=== PATIENT | female | born 1990 | race African-American/Black ===

== ENCOUNTER 2024-06-23 03:04 | Emergency (ER) | payer SELFPAY ==
[2024-06-23] VITALS (16 sets, daily range): BP systolic 115–138; BP diastolic 74–94; PULSE 55–93; RESP 10–20; TEMP 36.8; O2SAT 98–100
--- NOTE | ~2024-06-23 | CT_ITS ---
Noncontrast CT scan of the cervical spine Technique: Multiple contiguous axial [address] images of the cervical spine were obtained and rec onstructed in 2D sagittal and coronal planes on the acquisition scanner. Dose reduction technique was used on this scan by utilizing automated exposure control, adjustment of the mA and/or kV according to patient size. The dose-length product (DLP) was 470.08 mGy-cm. Clinical History: Pain, status post fall Findings: No fractures or dislocations. There is straightening of the normal cervical lordosis, othe rwise osseous structures are unremarkable. The intervertebral disc spaces are preserved. No preverte bral soft tissue swelling. There is mild patchy groundglass opacity in the lung apices Impression: No fracture or subluxation of the cervical spine. Mild patchy ground glass opacities in the lung apices. Correlate for atypical infection or mild fluid overload/pulmonary edema. Reviewed, dictated and finalized at [facility]. STRIAL DESIGNER Impression: No fracture or subluxation of the cervical spine. Mild patchy ground glass opacities in the lung apices. Correlate for atypical i nfection or mild fluid overload/pulmonary edema.
--- NOTE | ~2024-06-23 | CT_ITS ---
Non-contrast Head CT History: Seizure Technique: Axial non-contrast imaging of the brain was performed. Dose reduction technique was used on this scan by utilizing automated exposure control and iterative reconstruction technique. The dose -length product (DLP) was 756.67 mGy-cm. Findings: There is no evidence of intracranial hemorrhage, mass lesion, or acute infarct. Brain par enchyma appears normal. The ventricles and subarachnoid spaces are normal in size. The calvarium ap pears normal. The visualized paranasal sinuses and mastoid air cells are clear. There is left perior bital soft tissue swelling and subcutaneous emphysema. Impression: No intracranial abnormality seen. Left periorbital soft tissue swelling and subcutaneous emphysema, likely posttraumatic in nature. Reviewed, dictated and finalized at [facility]. ING SPECIALIST Impression: No intracranial abnormality seen. Left periorbital soft tissue swelling and subcutaneous emphysema, likely posttr aumatic in nature.
--- NOTE | 2024-06-23 03:17 | ECG_ITS ---
Test Date: 2024-06-23 03:21:37 Measurements Intervals [place] Rate: 60 P: 41 AK: 173 QRS: 6 QRSD: 105 T: -33 QT: 376 QTc: 378 Interpretive Statements SINUS RHYTHM MINIMAL Q WAVES- HIGH LATERAL LEADS ST DEVIATION AND MODERATE T-WAVE ABNORMALITY, CONSIDER ANT/INF ISCHEMIA ABNORMAL ECG No previous ECG available for comparison Electronically Signed On 06-23-2024 07:03:33 [employer] by Arsh Spivey D.O.
[2024-06-23] MEDS: SODIUM CHLORIDE 0.9% IV 1,000 ML 999 ML IV CONT (04:18)
[2024-06-23 05:06] LABS: Influenza A QL RT-PCR Negative (Negative); Influenza B QL RT-PCR Negative (Negative); RSV RNA, RT-PCR Negative (Negative); SARS-CoV-2 RNA PCR Negative (Negative)
[2024-06-23 05:27] LABS: Basophils Percent Auto 0.5 % (0.2-1.2); Eosinophils Absolute Auto 0.3 K/mm3 (0-0.3); Eosinophils Percent Auto 3.9 % (0-4.4); Hematocrit 36.9 % (37.0-47.0); Immature Granulocyte Absolute 0.02 K/mm3 (0.00-0.031); Immature Granulocyte Percent A 0.3 % (0-0.5); Lymphocytes Absolute Auto 1.86 K/mm3 (0.9-3.2); Lymphocytes Percent Auto 25.3 % (18.3-44.2); Mean Corpuscular HGB Conc 32.5 g/dl (32-36); Mean Corpuscular Hemoglobin 29.6 pg (26-34); Mean Corpuscular Volume 90.9 fl (80-100); Mean Platelet Volume 9.7 fl (7.4-10.4); Monocytes Absolute Auto 0.5 K/mm3 (0.1-0.6); Monocytes Percent Auto 6.3 % (2.6-8.5); Neutrophils Absolute Auto 4.7 K/mm3 (1.3-6.7); Neutrophils Percent Auto 63.7 % (45.5-73.1); Platelet Count Result 281 k/mm3 (150-375); Red Blood Count 4.06 M/mm3 (4.2-5.4); White Blood Count 7.4 K/mm3 (4.5-10.0)
[2024-06-23 05:41] LABS: Alanine Aminotransferase 11 U/L (6-35); Albumin Level 3.4 g/dL (3.5-5.1); Alkaline Phosphatase 70 U/L (38-126); Anion Gap 4 mmol/L (4-12); Aspartate Amino Transferase 19 U/L (14-36); Bilirubin,Total 0.3 mg/dL (0.2-1.3); Blood Urea Nitrogen 14 mg/dL (7-17); Calcium 8.1 mg/dL (8.4-10.2); Carbon Dioxide 28 mmol/L (22-30); Chloride 106 mmol/L (98-107); Estimated CRCL calculation 92 ml/min; Estimated Glomerular Filt Rate > 60; Glucose 82 mg/dL (65-110); Potassium 3.6 mmol/L (3.4-5.0); Sodium 138 mmol/L (137-145)
--- OUTSIDE RECORDS SUMMARY | 2024-06-23 06:02 | XMS_ITS | Continuity of Care Document ---
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 [facility] Respiratory Rate 16 breaths/min 05/28/2024 16:21:00 [facility] SBP NIBP 131 mm[Hg] 05/28/2024 16:21:00 [facility] DBP NIBP 90 mm[Hg] 05/28/2024 16:21:00 [facility] Weight (kg) 75.2 kg 05/28/2024 16:21:00 [facility] BMI 32.5 kg/m2 05/28/2024 16:21:00 [facility] SpO2 97 % 05/15/2024 04:54:44 [facility] Heart Rate 79 bpm 05/15/2024 04:54:43 [facility] Respiratory Rate 13 breaths/min 05/15/2024 04:54:26 [facility] SBP NIBP 103 mm[Hg] 05/15/2024 04:30:00 [facility] DBP NIBP 65 mm[Hg] 05/15/2024 04:30:00 [facility] Mean NIBP 84 mm[Hg] 05/15/2024 04:30:00 [facility] SpO2 94 % 05/15/2024 03:53:04 [facility] Heart Rate 61 bpm 05/15/2024 03:53:01 [facility] Respiratory Rate 14 breaths/min 05/15/2024 03:52:26 [facility] SBP NIBP 107 mm[Hg] 05/15/2024 03:30:00 [facility] DBP NIBP 70 mm[Hg] 05/15/2024 03:30:00 [facility] Mean NIBP 78 mm[Hg] 05/15/2024 03:30:00 [facility] Respiratory Rate 14 breaths/min 05/15/2024 03:29:56 [facility] Heart Rate 57 bpm 05/15/2024 03:29:56 [facility] SpO2 95 % 05/15/2024 03:29:29 [facility] SBP NIBP 111 mm[Hg] 05/15/2024 03:00:00 [facility] DBP NIBP 70 mm[Hg] 05/15/2024 03:00:00 [facility] Mean NIBP 83 mm[Hg] 05/15/2024 03:00:00 [facility] SpO2 95 % 05/15/2024 02:59:55 [facility] Heart Rate 57 bpm 05/15/2024 02:59:55 [facility] Respiratory Rate 14 breaths/min 05/15/2024 02:59:46 [facility] SBP NIBP 94 mm[Hg] 05/15/2024 02:30:00 [facility] DBP NIBP 55 mm[Hg] 05/15/2024 02:30:00 [facility] Mean NIBP 79 mm[Hg] 05/15/2024 02:30:00 [facility] Weight (kg) 75.5 kg 05/14/2024 23:47:00 [facility] Temperature (Celsius) 36.4 Ashley 05/14/2024 23:47:00 [facility] Heart Rate 70 bpm 03/31/2024 00:36:04 [facility] SpO2 94 % 03/31/2024 00:36:02 [facility] Respiratory Rate 12 breaths/min 03/31/2024 00:21:47 [facility] SpO2 97 % 03/31/2024 00:21:32 [facility] Heart Rate 71 bpm 03/31/2024 00:20:57 [facility] Mean NIBP 101 mm[Hg] 03/31/2024 00:00:00 [facility] SBP NIBP 119 mm[Hg] 03/31/2024 00:00:00 [facility] DBP NIBP 78 mm[Hg] 03/31/2024 00:00:00 [facility] SpO2 96 % 03/30/2024 23:53:57 [facility] Heart Rate 58 bpm 03/30/2024 23:53:57 [facility] Respiratory Rate 14 breaths/min 03/30/2024 23:53:46 [facility] SpO2 93 % 03/30/2024 23:21:53 [facility] Heart Rate 53 bpm 03/30/2024 23:21:49 [facility] Respiratory Rate 16 breaths/min 03/30/2024 23:21:43 [facility] Mean NIBP 86 mm[Hg] 03/30/2024 23:19:56 [facility] SBP NIBP 132 mm[Hg] 03/30/2024 23:19:56 [facility] DBP NIBP 71 mm[Hg] 03/30/2024 23:19:56 [facility] Respiratory Rate 15 breaths/min 03/30/2024 22:24:43 [facility] Mean NIBP 86 mm[Hg] 03/30/2024 22:00:00 [facility] SBP NIBP 112 mm[Hg] 03/30/2024 22:00:00 [facility] DBP NIBP 78 mm[Hg] 03/30/2024 22:00:00 [facility] SBP NIBP 106 mm[Hg] 03/30/2024 21:30:00 [facility] DBP NIBP 71 mm[Hg] 03/30/2024 21:30:00 [facility] Mean NIBP 88 mm[Hg] 03/30/2024 21:30:00 [facility] Weight (kg) 73.8 kg 03/30/2024 20:16:00 [facility] Temperature (Celsius) 36.0 Ashley 03/30/2024 20:16:00 [facility] Mean NIBP 104 mm[Hg] 03/24/2024 15:00:00 [facility] SpO2 99 % 03/24/2024 15:00:00 [facility] Heart Rate 76 bpm 03/24/2024 15:00:00 [facility] SBP NIBP 126 mm[Hg] 03/24/2024 15:00:00 [facility] DBP NIBP 86 mm[Hg] 03/24/2024 15:00:00 [facility] Heart Rate 76 bpm 03/24/2024 14:58:00 [facility] Respiratory Rate 16 breaths/min 03/24/2024 14:58:00 [facility] SpO2 100 % 03/24/2024 14:58:00 [facility] SBP NIBP 120 mm[Hg] 03/24/2024 14:51:46 [facility] DBP NIBP 93 mm[Hg] 03/24/2024 14:51:46 [facility] Mean NIBP 106 mm[Hg] 03/24/2024 14:51:46 [facility] Heart Rate 75 bpm 03/24/2024 14:14:51 [facility] Respiratory Rate 18 breaths/min 03/24/2024 14:14:45 [facility] SpO2 100 % 03/24/2024 14:11:19 [facility] Mean NIBP 87 mm[Hg] 03/24/2024 14:00:00 [facility] SBP NIBP 110 mm[Hg] 03/24/2024 14:00:00 [facility] DBP NIBP 75 mm[Hg] 03/24/2024 14:00:00 [facility] Respiratory Rate 19 breaths/min 03/24/2024 13:59:49 [facility] Heart Rate 64 bpm 03/24/2024 13:59:49 [facility] SpO2 100 % 03/24/2024 13:59:48 [facility] Mean NIBP 87 mm[Hg] 03/24/2024 13:30:00 [facility] SBP NIBP 113 mm[Hg] 03/24/2024 13:30:00 [facility] DBP NIBP 67 mm[Hg] 03/24/2024 13:30:00 [facility] Respiratory Rate 18 breaths/min 03/24/2024 12:18:31 [facility] Temperature (Celsius) 36.9 Ashley 03/24/2024 03:39:00 [facility] Weight (kg) 48.6 kg 03/24/2024 03:39:00 [facility] Weight (kg) 63.7 kg 08/03/2023 16:58:00 [facility] SBP NIBP 126 mm[Hg] 08/03/2023 16:58:00 [facility] DBP NIBP 101 mm[Hg] 08/03/2023 16:58:00 [facility] Heart Rate 112 bpm 08/03/2023 16:58:00 [facility] Respiratory Rate 18 breaths/min 08/03/2023 16:58:00 [facility] SpO2 99 % 08/03/2023 16:58:00 [facility] Temperature (Celsius) 36.7 Ashley 08/03/2023 16:58:00 [facility] Encounters Location Location Details Encounter Type Encounter Number Reason For Visit Attending Provider ADM Date DC Date Status Source [facility] Non-Admit [id number] Letty Peraltas 07/08 14:16 :02 07/09 05:59 :59 [facility] Emergency [id number] Darnell Fariasjermain 08/02 16:57 :09 08/02 17:56 :00 [facility] Transport [id number] Ilir Cedillo 03/24 03:24 :00 03/24 03:34 :00 [facility] Emergency [id number] Emily Tyler 03/24 03:37 :50 03/24 16:46 :00 [facility] [id number] Ilir Cedillo 03/30 19:54 :00 03/30 20:13 :00 [facility] Emergency [id number] Antonio Zamora 03/30 20:14 :43 03/31 02:05 :00 [facility] Emergency [id number] Johnny Sawyer 05/14 23:45 :59 05/15 05:00 :00 [facility] [id number] [facility]/28 16:18 :23 05/29 05:59 :59 [facility] Between Visit [id number] 05/29 21:22 :40 05/30 05:59 :59 [facility]3] Non-Admit [id number] Shabnam Redd 06/03 14:15 :00 06/04 05:59 :59 [facility] Between Visit [id number] 01/21 23:59 :59 [facility] Between Visit [id number] 01/30 23:59 :59 [facility] Between Visit [id number] 02/04 23:59 :59 [facility] Between Visit [id number] 03/01 23:59 :59 [facility] Between Visit [id number] 02/04 23:59 :59 [facility] ed [facility] Between Visit [id number] 01/11 23:59 :59 [facility] ed [facility] Between Visit [id number] 01/13 23:59 :59 [facility] Between Visit [id number] 02/14 23:59 :59 Discharg ed [facility] OUTPATIENT [id number] 1 month f.u Cancel [facility] OUTPATIENT [id number] SOV 1 OF 6 Debi Devon Cancel [facility] INPATIENT [id number] Vandana Pierce Cancel [facility] OUTPATIENT [id number] ILK INJECTIO N Maryann Jose A Cancel [facility] OUTPATIENT [id number] ILK INJECTIO N Maryann Jose A Cancel [facility] OUTPATIENT [id number] SOV 6 OF 6 Cancel [facility] OUTPATIENT [id number] SOV 3 OF 6 Cancel [facility] OUTPATIENT [id number] SOV 2 OF 6 Cancel [facility] OUTPATIENT [id number] SOV 3 OF 6 Debi Devon Cancel [facility] OUTPATIENT [id number] SOV 2 OF 6 Cancel [facility] OUTPATIENT [id number] SOV 2 OF 6 Cancel [facility] OUTPATIENT [id number] f.u Cancel [facility] OUTPATIENT [id number] SOV 4 OF 6 Cancel [facility] OUTPATIENT [id number] SOV 5 OF 6 Cancel [facility] OUTPATIENT [id number] SOV 6 OF 6 Debi Osorio Cancel [facility] OUTPATIENT [id number] f/u Teri Chauhan Cancel [facility] OUTPATIENT [id number] F/U Cancel [facility] OUTPATIENT [id number] f.u Cancel [facility] CR DIAGNOSTIC TESTING [id number] IUD COMPLICA TION Cancel [facility] Reproduc tive Health and Fertilit y [facility] OUTPATIENT [id number] SOV 1 OF 6 Debi Osorio Cancel [facility] OUTPATIENT [id number] SOV 1 OF 6 Debi Osorio Cancel [facility] OUTPATIENT [id number] FOLLOW UP & FOOT PROBLEM Cancel [facility] NO TECHBILL [id number] [phone] SOV 1 OF 6 9:00 Debi Osorio Cancel [facility] NO TECHBILL [id number] [phone] SOV 1 OF 6 11:30 Cancel [facility] NO TECHBILL [id number] Maryann Naranjo Cancel [facility] OUTPATIENT [id number] SOV 2 OF 6 8:15 MAKE UP Debi Osorio Cancel [facility] OUTPATIENT [id number] hidraden itits fu-PER DAE Naranjo Cancel [facility] OUTPATIENT [id number] SOV 3 OF 6 Debi Osorio Cancel [facility] OUTPATIENT [id number] SOV 3 OF 6 Cancel [facility] OUTPATIENT [id number] SOV 3 OF 6 Debi Devon Cancel [facility] OUTPATIENT [id number] SOV 3 OF 6 [phone] Cancel [facility] NO TECHBILL [id number] SOV 2 OF 6 [phone] 2:30 Debi Osorio Cancel [facility] NO TECHBILL [id number] 9:00 TELEHEAL TH ROGELIO PSYCH EVAL Christel Kimchi Cancel [facility] NO TECHBILL [id number] 9:00 TELEHEAL TH ROGELIO PSYCH EVAL Dmitri Sykes Cancel [facility] OUTPATIENT [id number] F/U ER Cancel [facility] OUTPATIENT [id number] f/u refill meds Cancel [facility] DIAGNOSTIC TESTING [id number] chest xray Cancel [facility] OUTPATIENT [id number] F/U ER Ortiz Bentley Cancel [facility] OUTPATIENT [id number] F/U ER Cancel [facility] DIAGNOSTIC TESTING [id number] $L73.2 CBC,CMP; AIU Cancel [facility] Ancillar ies EFS [facility] AMBULATORY SURG [id number] #5 $L73.2 REMICADE Cancel [facility] OUTPATIENT [id number] CLASS: 1 WK SLEEVE 10/02/18- BEBA Vandana Beba Cancel [facility] OUTPATIENT [id number] CLASS: 1 WK SLEEVE 10/02/18- BEBA Cancel [facility] OUT[facility] [id number] RAMON Naranjo Cancel [facility] OUTPATIENT [id number] 3 MONTH Susan Tran C[facility] OUTPATIENT [id number] INJECTIO Jermain Maryannmartina Naranjo Cancel [facility] DIAGNOSTIC TESTING [id number] ILK INJECTIO N Susan Stewardstiven Cancel [facility] OUTPATIENT [id number] 3 MONTH Maryannmartina Naranjo Cancel [facility] OUTPATIENT [id number] skin disorder Cancel [facility] OUTPATIENT [id number] f.u Cancel [facility] OUTPATIENT [id number] yeast infectio n Tainakorin Blanc Cancel [facility] DIAGNOSTIC TESTING [id number] tb test Cancel [facility] OUTPATIENT [id number] F/U Fitz Macdonald Cancel [facility] OUTPATIENT [id number] f.u Cancel [facility] DIAGNOSTIC TESTING [id number] tb test Cancel [facility] OUTPATIENT [id number] F/U Cancel [facility] OUTPATIENT [id number] MONTH SLEEVE 05/18/20- BEBA Dimitri Janice Cancel [facility] OUTPATIENT [id number] 1 MONTH SLEEVE 05/18/20- BEBA Cancel [facility] OUTPATIENT [id number] f.u Cancel [facility] OUTPATIENT [id number] f.u Cancel [facility] OUTPATIENT [id number] 6WEEK FU Radha Caicedo Cancel [facility] OUTPATIENT [id number] F/U KATHY Storm Cancel [facility] OUTPATIENT [id number] WEEK F/U Radha Caicedo Cancel [facility] OUTPATIENT [id number] F/U Cancel [facility] OUTPATIENT [id number] f.u Cancel [facility] OUTPATIENT [id number] f.u Cancel [facility] OUTPATIENT [id number] 6WEEK FU Radha Caicedo Cancel [facility] OUTPATIENT [id number] ABNORMAL LABS, NUMBNESS IN HANDS/FE ET Darien Delaney Cancel [facility] PMR PMR OUTPATIENT [id number] EMG/NCS SENSOR MOTOR/DI STAL POLYNER/ /SG Ortiz Ortiz Cancel [facility] OUTPATIENT [id number] ABNORMAL LABS,REF ERRING REQUESTE D DATE Darien Delaney [facility]ancel [facility] OUTPATIENT [id number] MENSTRAU L CYCLE Cancel [facility] OUTPATIENT [id number] f.u Cancel [facility] OUTPATIENT [id number] f.u Active [facility] FGR FGR NO TECHBILL [id number] new [facility] Cancel [facility] OUTPATIENT [id number] HELADIO Cancel [facility] OUTPATIENT [id number] NEW: SURGERY REMINDER MESS SB Sanya Villavicencio Cancel [facility] OUTPATIENT [id number] HELADIO Cancel [facility] OUTPATIENT [id number] 4 week follow up Geovanna Mccormack Active [facility] OUTPATIENT [id number] f.u Cancel [facility] OUTPATIENT [id number] HS FLARE Radha Caicedo Cancel [facility] OUTPATIENT [id number] ret Cancel [facility] OUTPATIENT [id number] 4 WEEK F/U - REMICADE Maryann Naranjo Cancel [facility] OUTPATIENT [id number] f.u Cancel [facility] OUTPATIENT [id number] f.u Cancel [facility] DIAGNOSTIC TESTING [id number] LAB/UA COMING AT 4:15 Cancel [facility] [facility] OUTPATIENT [id number] colpo [facility] SALAZAR SALAZAR OUTPATIENT [id number] INJECTIO NS- HUMARA Geovanna Nguyenison [facility]ancel [facility] OUTPATIENT [id number] refill meds Cancel [facility] DIAGNOSTIC TESTING [id number] DRESSING CHANGE AND PACKING Cancel [facility] OUTPATIENT [id number] UTI Cancel [facility] OUTPATIENT [id number] HELADIO Active [facility] OUTPATIENT [id number] establis h care Cancel [facility] OUTPATIENT [id number] f.u Cancel [facility] RAINE RAINE OUTPATIENT [id number] DEISY uNgent Cancel [facility] OUTPATIENT [id number] REPMURALI Sharp Cancel [facility] CR PHYSICIAN OP CLINIC [id number] bpp/nst/ ramila Mcgowan [facility] NCL NCL OUTPATIENT [id number] 2 MO F/U Cancel [facility] Neurolog y [facility] [id number] bpp/nst/ ramila Mcgowan [facility] OBP OBP CR PHYSICIAN OP CLINIC [id number] NUTRITIO N EDUCATIO N Cancel [place] [facility] [id number] weight reductio n post childbir th [facility] OUTPATIENT [id number] F/U Cancel [facility] OUTPATIENT [id number] UTI Ananda Sharp Cancel [facility] SALAZAR SALAZAR OUTPATIENT [id number] follow up Susan Tran Cancel [facility] RAINE RAINE OUTPATIENT [id number] DEISY Nugent Cancel [facility] SALAZAR OUTPATIENT [id number] follow up Susan Tran Cancel [facility] [id number] LACTATIO N Cancel [facility] OUTPATIENT [id number] f.u Cancel [facility] OBP OBP CR PHYSICIAN OP CLINIC [id number] ED Cancel [place] [facility] OUTPATIENT [id number] 3 week f.u Cancel [facility] OUTPATIENT [id number] QUESTION S IF Cancel [facility] SAL[facility] SALAZAR DIAGNOSTIC TESTING [id number] INJECTIO NS- HUMARA Geovanna Easton Cancel [facility] SALAZAR SALAZAR OUTPATIENT [id number] hinderen tis Maryann Jose A Cancel [facility] DIAGNOSTIC TEST [id number] MR BRN/C-SP ;LOW PRESSURE HEADACHE Jaxson Joie Cancel [facility] Fischel [facility] OUTPATIENT [id number] F/U Cancel [facility] OUTPATIENT [id number] strep Sarthak Hinson Cancel [facility] EAC EAC CR PHYSICIAN OP CLINIC [id number] ASTHMA,W SHI SPOTS ON THROAT Adwoa Engle Cancel [facility] OUTPATIENT [id number] f.u Ananda Sharp Cancel [facility] OUTPATIENT [id number] f.u Cancel [facility] OUTPATIENT [id number] HELADIO Sharp Cancel [facility] OUTPATIENT [id number] f.u Cancel [facility] OUTPATIENT [id number] NEW: SURGERY Sanya Villavicencio Cancel [facility] OUTPATIENT [id number] betty Sharp Cancel [facility] DIAGNOSTIC TEST [id number] MR BRN/C-SP ;LOW PRESSURE HEADACHE Jaxson Lucchese Cancel [facility] Fischel [facility] OUTPATIENT [id number] [facility] Cancel [facility] [place] PHYSICIAN OP CLINIC [id number] BPP/NST/ RAMILA Cancel [facility] CR PHYSICIAN OP CLINIC [id number] BPP/NST/ RAMILA Cancel [facility] OUTPATIENT [id number] colpo Jeaneth Jimmy Cancel [facility] OUTPATIENT [id number] f.u Cancel [facility] NCL NCL OUTPATIENT [id number] FU Cancel [facility] Neurolog y SALAZAR SALAZAR OUTPATIENT [id number] hidraden itis, acne Rebeca Alvarez Cancel [facility] OUTPATIENT [id number] SKIN DISEASE Cancel [facility] SALAZAR SALAZAR OUTPATIENT [id number] 4 WEEK HS Geovannaquentin Mccormack Cancel [facility] OUTPATIENT [id number] UTI Sarthak Hinson Cancel [facility] OUTPATIENT [id number] ABNORMAL LABS,REF ERRING REQUESTE D DATE Paul Sortoa Cancel [facility] OUTPATIENT [id number] HELADIO Cancel [facility] Procedures Procedure Code Date Perfomer Comments Source Nexplanon Removal<sup>1</sup> 05/2021 [facility] Social History Social History Date Source No data available for this section 06/04/2024 [facility] No data available for this section 05/30/2024 [facility] No data available for this section 05/29/2024 [facility] No data available for this section 05/15/2024 [facility] No data available for this section 03/31/2024 [facility] No data available for this section 03/30/2024 [facility] No data available for this section 03/24/2024 [facility] No data available for this section 03/24/2024 [facility] No data available for this section 08/03/2023 [facility] No data available for this section 07/10/2023 [facility]
--- OUTSIDE RECORDS SUMMARY | 2024-06-23 06:02 | XMS_ITS | Clinical Summary ---
Author Organization [facility] Address [address] [place] [address] Care Team Providers Care Glass Block Bender Name Role Phone No, Physician Primary Care Provider [phone] Allergies Active Allergy Reactions Criticality Noted Date Comments Hydrocodone Anaphylaxis High 12/15/2023 Iodine Shortness of breath High 03/11/2010 Pt states she has used it with no reaction 12/15/2023 Other Swelling Medium 08/07/2023 Nuva ring Medications folic acid (FOLVITE) 1 mg tablet Take 1 tablet (1 mg total) by mouth daily 30 tablet 07/23/19 24 025 Active naloxone (NARCAN) 4 mg/actuation spray,non-aerosol Administer 1 spray into affected nostril(s) as needed for opioid reversal Call 911. Administer a single spray in one nostril. Repeat every 3 minutes as needed if no or minimal response. 5 each 3 07/23/19 24 Active alcohol swabs pads, medicated Apply 1 each topically 4 (four) times a day 100 each 10/15/19 24 Active Additional Information Patient not taking.Reported on 01/18/2024 lancets 33 gauge misc 1 Units 4 (four) times a day 100 each 10/15/19 24 Active Additional Information Patient not taking.Reported on 01/18/2024 empty container (sharps container) misc 1 each 4 (four) times a day 1 each 10/15/19 24 Active Additional Information Patient not taking.Reported on 01/18/2024 albuterol HFA (PROVENTIL HFA,VENTOLIN HFA,PROAIR HFA) 90 mcg/actuation inhaler Inhale 2 puffs every 6 (six) hours as needed for wheezing 1 each 3 13/20 24 025 Active loratadine (CLARITIN) 10 mg tablet Take 1 tablet (10 mg total) by mouth daily 30 tablet 01/18/20 24 025 Active budesonide-formote roL (SYMBICORT) 80-4.5 mcg/actuation inhaler Inhale 1 puff 2 (two) times a day Rinse mouth with water after use. Do not swallow. An as needed. 1 each 01/18/20 24 Active prochlorperazine (COMPAZINE) 5 mg tablet Take 1 tablet (5 mg total) by mouth every 6 (six) hours as needed for nausea or vomiting 30 tablet 2 01/18/20 24 Active ondansetron ODT (ZOFRAN-ODT) 4 mg disintegrating tablet Take 1 tablet (4 mg total) by mouth every 6 (six) hours as needed for nausea or vomiting 30 tablet 3 01/18/20 24 Active fluticasone furoate-vilanteroL (BREO ELLIPTA) 200-25 mcg/dose diskus inhaler Inhale 1 puff daily Rinse mouth with water after use. Do not swallow. 9 each 3 02/06/20 24 Active PNV with scqsaga-pcbr-MF 27 mg iron- 1 mg tabletIndications: Vitamin Deficiency Prevention Take 1 tablet by mouth daily 90 tablet 3 02/06/20 24 Active polyethylene glycol (MIRALAX) 17 gram/dose bulk powderIndications: constipation Take 17 g by mouth daily 595 g 02/06/20 24 Active famotidine (PEPCID) 20 mg tabletIndications: care following vaginal delivery Take 1 tablet (20 mg total) by mouth 2 (two) times a day 60 tablet 04/28/[address] (PROTONIX) 20 mg EC tabletIndications: care following vaginal delivery Take 1 tablet (20 mg total) by mouth daily 30 tablet 04/28/20 24 025 Active lacosamide (VIMPAT) 10 mg/mL solutionIndication s:Tonic-Clonic Epilepsy Treatment Adjunct Take 5 mL (50 mg total) by mouth 2 (two) times a day 200 mL 04/28/20 24 Active buprenorphine-nalo xone (SUBOXONE) 8-2 mg per filmIndications:op ioid use disorder Place 1 Film under the tongue 3 (three) times a day for 10 days Take 1 film two to three times per day 30 Film 05/29/19 25 Active buprenorphine-nalo xone (SUBOXONE) 8-2 mg per filmIndications:op ioid use disorder Place 1 Film under the tongue 3 (three) times a day for 21 days Take 1 film two to three times per day 63 Film 05/13/19 25 025 Discontin ued(Reord er) Active Problems Problem Noted Date Diagnosed Date CARE: care following vaginal delivery 02/04/2024 Overview (03/17/2024): #: - depression screening: Discussed normal baby blues and post depression warning signs. Reviewed precautions. - Contraception: Declined - MOF: Breast - Pap: Collected * - Gardasil: * #Chronic HTN - Blood pressures well-controlled on no agents # MD Asthma: - Well controlled with regimen of fluticasone + symbicort # History of OUD: - Last illicit use prior to . - Current regimen: 1 film suboxone 8-2 mg TID PRN - UDS pending # Hx gastric sleeve: - Continue vitamin supplements . - No NSAIDs. # IPV - Reports safe* - Safety plan inp lace Acne vulgaris 01/09/2024 Acute posthemorrhagic anemia 01/09/2024 Atelectasis 01/09/2024 Bulimia nervosa 01/09/2024 Cannabis abuse, uncomplicated 01/09/2024 Cervical radiculopathy 01/09/2024 Comedonal acne 01/09/2024 Depressive disorder 01/09/2024 Diaphragmatic hernia without obstruction or gang andreina 01/09/2024 Gastro-esophageal reflux disease without esophag itis 01/09/2024 Hidradenitis suppurativa 01/09/2024 History of sleeve gastrectomy 01/09/2024 Hypokalemia 01/09/2024 Hypothyroidism 01/09/2024 Iron deficiency anemia 01/09/2024 Moderate persistent asthma with (acute) exacerba tion 01/09/2024 Retained uterine membrane without hemorrhage 08/2023 Second degree perineal laceration during deliver y 01/09/2024 Tinea pedis 01/09/2024 Unspecified convulsions 01/09/2024 Unspecified hydronephrosis 01/09/2024 Essential (primary) hypertension 01/09/2024 Unspecified maternal hypertension, second trimes ter 01/09/2024 Anxiety 01/09/2024 Asthma 01/09/2024 Obesity complicating , second trimester 01/09/2024 Opioid use disorder 08/08/2023 PTSD (post-traumatic stress disorder) 08/08/2023 Resolved Problems Problem Noted Date Diagnosed Date Resolved Date Encounter for induction of labor 02/04/2024 03/17/2024 Overview (02/04/2024): Stacia Alvarez is a 33 y.o. female at 39w1d who is dated by L=1 and is being admitted for an elective induction of labor. Admit to L&D: Labs: CBC and T&S pending. Induction of labor with cook catheter, oxytocin . FWB: Continuous monitoring. Reactive NST. ID: 3rd trimester HIV (>28 wga) negative on 12/19. GBSuria positive on 10/14, will start PCN . RPR on admission: pending. History of genital HSV or HSV 1/2 seropositivity: No. Membrane Status: intact. Indications for UDS: opiates prescribed during current . Verbal consent obtained for UDS: Yes. MOF: Undecided on feeding method. Urine drug screen pending. Patient informed of results: pending. MOC: Declines s/p counseling . Pain management: Desires epidural. Post DVT prophylaxis: The patient has the following MAJOR risk factors none and the following MINOR risk factors BMI 30-39 and parity >/=3. enoxaparin 40 mg daily will be ordered for VTE prophylaxis c/b: #OUD: Last illicit use prior to . Stable on current regimen: film suboxone 8-2 mg TID. Of note, patient missed previous appointment and did not get refill. Has not taken suboxone in 4 days. For UDS on admission. For SW . #MD Asthma: Patient reports only using PRN inhaler around 2x per week. Will place on recommended regimen of fluticasone + symbicort (SMART therapy). #Resolved FGR: Initially noted on 11/28 Adalberto. Resolved on 12/19 Adalberto. Last US on 01/08 with EFW 19%ile, AC 23%ile. #Low lying placenta, resolved #Anemia: S/p iron infusion on 01/01. Will f/u admit CBC. #Pyelonephritis: Patient required [facility] admission in 07/2023 and was prescribed macrobid suppression for remainder of . Patient reports not taking any abx, denies urinary symptoms. #Hx gastric sleeve: Continue vitamin supplements . No NSAIDs. #Rubella equivocal: for pp MMR #Cervical screening: Needs pap at visit #hx cHTN: Patient with hx cHTN prior to weight loss. Has not required medications for years. Will follow up admit CBC/CMP and continue to watch blood pressures. #BMI 34 #IVP: For SW . Abnormality in heart r ate and rhythm complicating labor and delivery 01/09/2024 03/17/20 24 Anemia, unspecified 01/09/2024 01/09/20 24 Displacement of infusion catheter 01/09/2024 01/09/2024 Dysphagia, unspecified 01/09/202401/08 Elevated white blood cell count, unspecified 01/09/2024 Hypothyroidism, unspecified 01/09/2024 01/09/2024 Chest pain, unspecified 01/09/2024/08/2023 Other chest pain 01/09/2024 01/09/2024 Pain in right hand 01/09/2024 Presence of other vascular i mplants and grafts 01/09/2024 01/09/2024 Hypertension 01/09/2024 01/09/2024 Unspecified maternal hyperte nsion, complicating childbirth 01/09/2024 01/09/2024 Pre-existing essential hyper tension complicating childbirth 01/09/2024 01/09/2024 Unspecified pre-existing hyp ertension complicating childbirth 01/09/2024 01/09/2024 Unspecified pre-existing hyp ertension complicating , third trimester 01/09/2024 01/09/2024 Morbid (severe) obesity due to excess calories 01/09/2024 01/09/2024 Unspecified asthma, uncomplicated 01/09/2024 01/09/2024 Surgical operation with impl ant of artificial internal device as the cause of abnormal reaction of the patient, or of later complication, without mention of misadventure at the time of the procedure 01/09/2024 01/09/2024 Other medical procedures as the cause of abnormal reaction of the patient, or of later complication, without mention of misadventure at the time of the procedure 01/09/2024 01/09/2024 Surgical operation with anas tomosis, bypass or graft as the cause of abnormal reaction of the patient, or of later complication, without mention of misadventure at the time of the procedure 01/09/2024 01/09/2024 growth restriction RESOLVED 2023 02/18/2024 Overview (01/09/2024): Images from the original note were not included. UAD 97%, elevated S/p HR NIPT for triploidy vs vanishing twin (did have vanishing twin) S/p normal anatomy US S/p amnio 12/12 - CMV neg, aneuscreen normal S/p counseling Plan: [x] Growth EFW every 3 weeks with MFM comanaged visit Assessment & Plan (01/21/2024 9:27 PM CDT): Plan: [x] Growth EFW every 3 weeks with MFM comanaged visit Assessment & Plan (12/31/2023 1:15 AM CDT): Images from the original note were not included. US 11/29/2023: UAD 97%, elevated S/p HR NIPT for triploidy vs vanishing twin (did have vanishing twin) S/p normal anatomy US S/p amnio 12/12 - CMV neg, aneuscreen normal S/p counseling Plan: [x] Amniocentesis for PRINCIPAL BIOSTATISTICIAN (and CMV if gestational age <32 weeks at diagnosis) - s/p amnio 12/12 [x] Twice weekly testing with UA dopplers/BPP alternating with NST (usually Sunday/ or Sunday/Sunday schedule) - she is unable to have any appts on Mondays or Sunday so will plan for weekly NST and BPP on same day given normal UAD [x] Growth EFW every 3 weeks with MFM comanaged visit > resolved 12/20/23, EFW 12%ile, AC 16%ile. [] Repeat growth US 3-4 weeks Assessment & Plan (12/18/2023 11:06 AM CDT): Images from the original note were not included. US 11/29/2023: UAD 97%, elevated S/p HR NIPT for triploidy vs vanishing twin (did have vanishing twin) S/p normal anatomy US S/p amnio 12/12 - CMV neg, aneuscreen normal S/p counseling Plan: [x] Amniocentesis for PRINCIPAL BIOSTATISTICIAN (and CMV if gestational age <32 weeks at diagnosis) - s/p amnio 12/12 [] Twice weekly testing with UA dopplers/BPP alternating with NST (usually Sunday/ or Sunday/Sunday schedule) - she is unable to have any appts on Mondays or Sunday so will plan for weekly NST and BPP on same day given normal UAD today - if UAD are elevated again, will need to discuss potential for twice weekly testing [] Growth EFW every 3 weeks with MFM comanaged visit [] Plan for delivery at 37 weeks unless EFW or testing dictates sooner Assessment & Plan (2023 12:26 AM CDT): Images from the original note were not included. US 11/29/2023: UAD 97%, elevated S/p HR NIPT I/s/o vanishing twin S/p normal anatomy US Counseling 2023: The diagnosis of growth restriction (FGR) is made when the estimated weight that is less than the 10th percentile. The implications of using this definition may include normal babies that are destined to grow below the 10th percentile and may exclude babies that are normally growth but have also not met their growth potential. The etiology for FGR varies but are generally classified by maternal, and placental disorders. These causes include dating errors, constitutional, maternal medical conditions, genetic conditions or aneuploidy, infections, or placental insufficiency. Workup for diagnosis of cause of FGR includes an amniocentesis for chromosomal microarray and cytomegalovirus testing depending on gestational age at diagnosis. There are no known effective strategies to prevent growth restriction. Studies have tried special diets which were not effective. Aspirin has also been studied but currently has only shown benefit in patients who were also affected with preeclampsia. and obstetric risks associated with FGR include stillbirth (normal stillbirth rate is 0., <10th% 2., <5th% 4., <3rd% 5.12/999), delivery, need for NICU admission and depending on etiology, senior care metabolic, cardiovascular, or neurologic abnormalities. Despite the etiology management includes serial monitoring of growth. We recommend obtaining an ultrasound to assess growth every 3 weeks. surveillance with weekly umbilical artery doppler with admission if there is absent or reverse diastolic flow. Absent or reverse diastolic flow is associated with an increased risk of mortality. Nonstress test or biophysical profile is typically performed when delivery would be considered - depending on gestational age at diagnosis, shared decision making with the patient is used to determine when testing will be initiated. Timing of delivery is dependent on gestational age, doppler studies and testing and will be decided as the progresses. In general, if there has been reassuring testing and interval growth above the 3rd percentile we advocate for delivery at 39 weeks. Maternal risk factors, growth below the 3rd percentile, abnormal dopplers, oligohydramnios will decrease the gestational age recommended for delivery between 30-37 weeks. Plan: [] Amniocentesis for PRINCIPAL BIOSTATISTICIAN (and CMV if gestational age <32 weeks at diagnosis) offered - desires, plan in 2 wks @ 31wks [] Twice weekly testing with UA dopplers/BPP alternating with NST (usually Sunday/ or Sunday/Sunday schedule) [] Growth EFW every 3 weeks with [facility] comanaged visit [] Plan for delivery at 37 weeks unless EFW or testing dictates sooner Supervision of high-risk pre gnancy, third trimester 11/21/2023 02/18/2024 Overview (01/21/2024): [] Co-management vs. [x] Full MF Care; [x] Red Team [] Blue Team Referring Provider: transfer from [facility] [] or Medicare Insurance [x] Dating Criteria: LMP 05/06/23 with SHAYNE 02/10/24 [x] Labs: Rh [O+], Ab [negative], Rubella [equivocal], HIV [non- reactive], HepBSAg [non-reactive], RPR [non-reactive], Hep C [non-reactive], Varicella [positive], GC/CT [negative/negative] [x] Aneuploidy: NIPT high risk [x] Carrier Screening: negative 08/08 [x] CBC/Hgb: 10.5/30.3/plt 287 [] Early 1hr GTT (if indicated) [x] UCx: 07/09/23: negative [] Pap: not done [] Flu Shot (Jan-Apr): [] COVID [] LD ASA (if indicated) [] EPDS [ ]; PNBHS referral (if indicated) 2nd Tri Labs: [x] Anatomy ultrasound: 09/23 - anatomy visualized and wnl [x] CBC/1hr gtt at 24-28wks: 6/10 CBC Hgb 9.7/Plt 338. Iron infusion scheduled on 01/01 Normal fasting, postprandial glucose per patient report. For A1c with next set of labs. [x] Tdap (27-36wks): 11/28 pt is amenable, to be completed at next visit since pt had urgent MRI ,given 12/13/23, FFW [] Rhogam at 28 wks (if Rh neg): NA, O+ 3rd Tri Labs: [x] CBC/HIV/RPR/T&S: Hgb 9.3, HIV neg, RPR NR [x] GBS: 10/14- positive urine cx [] GC/CT (if indicated): [] testing: [] RSV: declines Counseling [x] MOD: IOL scheduled for 39+1 on 02/03 [x] Place of delivery: [facility] [] Last clinic visit SVE: [] IOL start agent: [] Epidural: [] Blood Products [] Consents signed: [] Stop ASA [x] MOC: declines, counseled 01/17 [] Method of feeding: [] Contract Designer: [] PP Depression Discussed: Assessment & Plan (01/21/2024 9:27 PM CDT): 3rd Tri Labs: [x] CBC/HIV/RPR/T&S: Hgb 9.3, HIV neg, RPR NR [x] GBS: 6/10- positive urine cx [] GC/CT (if indicated): [] testing: [] RSV: declines Counseling [x] MOD: IOL scheduled for 39+1 on 02/03 [x] Place of delivery: [facility] [] Last clinic visit SVE: [] IOL start agent: [] Epidural: [] Blood Products [] Consents signed: [] Stop ASA [x] MOC: declines, counseled 01/17 [] Method of feeding: [] Contract Designer: [] PP Depression Discussed: Assessment & Plan (12/18/2023 11:05 AM CDT): 2nd Tri Labs: [x] Anatomy ultrasound: 09/23 - anatomy visualized and wnl [x] CBC/1hr gtt at 24-28wks: 6/10 CBC Hgb 9.7/Plt 338. Normal fasting, postprandial glucose per patient report. For A1c with next set of labs. [x] Tdap (27-36wks): 11/28 pt is amenable, to be completed at next visit since pt had urgent MRI ,given 12/13/23, FFW [] Rhogam at 28 wks (if Rh neg): NA, O+ 3rd Tri Labs: [] CBC/HIV/RPR/T&S: [] GBS: [] GC/CT (if indicated): [] testing: [] RSV Assessment & Plan (2023 12:21 AM CDT): Full M Care. Recommend tdap today. Plan for 3T labs w/ hgbA1c, HCV, and micronutrient levels in 1-2 wks. Patient with concern for Rh negative status. Reviewed T&S demonstrates Rh+ status. Reviewed pathophysiology of alloimmunization; however, discussed with patient not at risk for this given blood type. CARE: Low-lying placenta - RESOLVED 10/07/2023 02/18/2024 Overview (12/05/2023): 13mm from internal os S/p counseling 11/28 update: > 2 cm from internal os Assessment & Plan (2023 12:15 AM CDT): 13mm from internal os S/p counseling 11/28 update: > 2 cm from internal os - OK for CARE: Port-A-Cath, s/p removal 08/06/2023 03/17/2024 Overview (08/07/2023): - Patient with port in place. Reports it was placed at [facility] prior to gastric sleeve and has required multiple revisions. - States that it was placed for different infusions including remicade for rare skin disease. Has not used port in over 3 years. - s/p uncomplicated removal with [facility] on 08/07/23 Assessment & Plan (2023 12:09 AM CDT): - Patient with port in place. Reports it was placed at [facility] prior to gastric sleeve and has required multiple revisions. - States that it was placed for different infusions including remicade for rare skin disease. Has not used port in over 3 years. - s/p uncomplicated removal with [facility] on 08/07/23 Asthma affecting i n second trimester 08/06/2023 10/29/2023 CARE: History of OUD 07/23/2023 024 Overview (02/18/2024): S/p counseling UDS History: 07/09: +naloxone, buprenorphine metabolite 07/22: buprenorphine metabolite 08/05: buprenorphine metabolite, cannabinoids 08/19: buprenorphine metabolite, cannabinoids 10/14: felt like dose was making her too sleepy, discussed taking half dose 10/28: doing well on 05/08 film suboxone TID, denies withdrawal, cravings. UDS +buprenorphine, THC 11/28: Taking suboxone intermittently due to N/V and severe GERD. Denies withdrawal, cravings. UDS ordered 12/12: Doing well, taking suboxone intermittently. No refill needed today. No cravings or withdrawal sx. 12/19: continuing to do well and having no acute issues on suboxone 01/08: refill for one week to pharmacy in [place], [place] 01/17: refill for 1 week to pharmacy at [facility] CURRENT REGIMEN: suboxone 8-2mg 1 film BID to TID PRN (increased 02/17 at 2 week PP visit) [x] Narcan Rx given: Yes Date: 07/22 [] PDMP Review: [] Qtrimester CMP: 1T, 2T wnl [x] Social work referral Assessment & Plan (01/21/2024 9:29 PM CDT): 01/17: refill for 1 week to pharmacy at [facility] CURRENT REGIMEN: 1/2 film suboxone 8-2mg TID [x] Narcan Rx given: Yes Date: 07/22 [] PDMP Review: [] Qtrimester CMP: 1T, 2T wnl [x] Social work referral [] Third trimester Psychiatry visit: [facility] attempted call on 01/20 [x] Third trimester anesthesia consult:completed 12/23 [x] Third trimester [facility] consult: 12/27/23 [] Third trimester Hepatitis C antibody: plan with next set of labs [x] 32-34 week growth scan: serial growth due to FGR Assessment & Plan (12/31/2023 1:18 AM CDT): S/p counseling UDS History: 07/09: +naloxone, buprenorphine metabolite 07/22: buprenorphine metabolite 08/05: buprenorphine metabolite, cannabinoids 08/19: buprenorphine metabolite, cannabinoids 10/14: felt like dose was making her too sleepy, discussed taking half dose 10/28: doing well on 1/2 film suboxone TID, denies withdrawal, cravings. UDS +buprenorphine, THC 11/28: Taking suboxone intermittently due to N/V and severe GERD. Denies withdrawal, cravings. UDS ordered 12/12: Doing well, taking suboxone intermittently. No refill needed today. No cravings or withdrawal sx. 12/19: continuing to do well and having no acute issues on suboxone CURRENT REGIMEN: 1/2 film suboxone 8-2mg TID (10/14) [x] Narcan Rx given: Yes Date: 07/22 [] PDMP Review: [] Qtrimester CMP: 1T, 2T wnl [x] Social work referral [] Third trimester Psychiatry visit: [] Third trimester anesthesia consult: scheduled 12/12 - did not have consult on 12/12, needs to be rescheduled [x] Third trimester [facility] consult: scheduled on 12/27/23 [] Third trimester Hepatitis C antibody: plan with next set of labs [x] 32-34 week growth scan: serial growth due to FGR Assessment & Plan (12/18/2023 11:03 AM CDT): 12/12: Doing well, taking suboxone intermittently. No refill needed today. No cravings or withdrawal sx. CURRENT REGIMEN: 1/2 film suboxone 8-2mg TID (10/14) [x] Narcan Rx given: Yes Date: 07/22 [] PDMP Review: [] [place] CMP: 1T, 2T wnl [x] Social work referral [] Third trimester Psychiatry visit: [] Third trimester anesthesia consult: scheduled 12/12 - did not have consult on 12/12, needs to be rescheduled [] Third trimester [facility] consult: scheduled on 12/27/23 [] Third trimester Hepatitis C antibody: plan with next set of labs [x] 32-34 week growth scan: serial growth due to FGR Assessment & Plan (2023 12:21 AM CDT): S/p counseling UDS History: 07/09: +naloxone, buprenorphine metabolite 07/22: buprenorphine metabolite 08/05: buprenorphine metabolite, cannabinoids 08/19: buprenorphine metabolite, cannabinoids 10/14: felt like dose was making her too sleepy, discussed taking half dose 10/28: doing well on 1/2 film suboxone TID, denies withdrawal, cravings. UDS +buprenorphine, THC 11/28: Taking suboxone intermittently due to N/V and severe GERD. Denies withdrawal, cravings. UDS ordered. CURRENT REGIMEN: 1/2 film suboxone 8-2mg TID (10/14) [x] Narcan Rx given: Yes Date: 07/22 [] PDMP Review: [] Kalin CMP: 1T, 2T wnl [x] Social work referral [] Third trimester Psychiatry visit: [] Third trimester anesthesia consult: [] Third trimester [facility] consult: [] Third trimester Hepatitis C antibody: [] 32-34 week growth scan: Suboxone prescription given today: 8-2mg TID mg x 21. Will work to set up consults for follow up. CARE: H/O gastric sleeve 07/23/202303/2024 Overview (01/21/2024): History: Patient had gastric sleeve surgery 05/18/2020 through [facility], without recent post-op followup S/p Counseling S/p Vitamin B12 injection and IV folic acid during [facility] admission 10/14: Labs notable for low B12 (218), ferritin (8), and vitamin D (16) 11/28: Rx for pepcid/PPI given reflux sx. New referral placed. Plan for micronutrient labs with 3T labs. Plan: [x] Copper, zinc, vitamin K, and triglycerides to be ordered on meds Vitamin C 1.2, vitamin E 11.0, vitamin A 38 [x] Iron, B12, Folate, Ca, Vit D every trimester 07/11: vitamin B12 217, vitamin D 9, ferritin 45, iron 110, TIBC 290, transferrin 38, folate 7.2 10/17: vitamin B12 218, vitamin D 16, ferritin 8, folate wnl 12/19 rx sent for Zinc, iron low. Iron infusion completed 01/01 [x] Rx for vitamin B and vitamin D [x] 800-1000mcg Folic acid - Rx sent 07/22 [x] Referral to [facility] - no showed appt scheduled 10/01, plan to reschedule-- new referral on 11/28 Assessment & Plan (01/21/2024 9:33 PM CDT): 3T labs completed Iron infusion completed 01/01 Zinc rx resent Assessment & Plan (12/31/2023 1:09 AM CDT): History: Patient had gastric sleeve surgery 05/18/2020 through [facility], without recent post-op followup S/p Counseling S/p Vitamin B12 injection and IV folic acid during [facility] admission 10/14: Labs notable for low B12 (218), ferritin (8), and vitamin D (16) 11/28: Rx for pepcid/PPI given reflux sx. New referral placed. Plan for micronutrient labs with 3T labs. Plan: [x] Copper, zinc, vitamin K, and triglycerides to be ordered on meds Vitamin C 1.2, vitamin E 11.0, vitamin A 38 [x] Iron, B12, Folate, Ca, Vit D every trimester 07/11: vitamin B12 217, vitamin D 9, ferritin 45, iron 110, TIBC 290, transferrin 38, folate 7.2 10/17: vitamin B12 218, vitamin D 16, ferritin 8, folate wnl 12/19 ordered [x] Rx for vitamin B and vitamin D [x] 800-1000mcg Folic acid - Rx sent 07/22 [x] Referral to [facility] - no showed appt scheduled 10/01, plan to reschedule-- new referral on 11/28 Assessment & Plan (12/18/2023 11:04 AM CDT): 11/28: Rx for pepcid/PPI given reflux sx. New referral placed. Plan for micronutrient labs with 3T labs. Plan: [] Copper, zinc, vitamin K, and triglycerides to be ordered on meds Vitamin C 1.2, vitamin E 11.0, vitamin A 38 [] Iron, B12, Folate, Ca, Vit D every trimester 07/11: vitamin B12 217, vitamin D 9, ferritin 45, iron 110, TIBC 290, transferrin 38, folate 7.2 10/17: vitamin B12 218, vitamin D 16, ferritin 8, folate wnl [x] Rx for vitamin B and vitamin D [x] 800-1000mcg Folic acid - Rx sent 07/22 [x] Referral to [facility] - no showed appt scheduled 10/01, plan to reschedule-- new referral on 11/28 Assessment & Plan (2023 12:13 AM CDT): History: Patient had gastric sleeve surgery 05/18/2020 through [facility], without recent post-op followup S/p Counseling S/p Vitamin B12 injection and IV folic acid during [facility] admission 10/14: Labs notable for low B12 (218), ferritin (8), and vitamin D (16) 11/28: Rx for pepcid/PPI given reflux sx. New referral placed. Plan for micronutrient labs with 3T labs. Plan: [] Copper, zinc, vitamin K, and triglycerides to be ordered on meds Vitamin C 1.2, vitamin E 11.0, vitamin A 38 [] Iron, B12, Folate, Ca, Vit D every trimester 07/11: vitamin B12 217, vitamin D 9, ferritin 45, iron 110, TIBC 290, transferrin 38, folate 7.2 10/17: vitamin B12 218, vitamin D 16, ferritin 8, folate wnl [x] Rx for vitamin B and vitamin D [x] 800-1000mcg Folic acid - Rx sent 07/22 [x] Referral to [facility] - no showed appt scheduled 10/01, plan to reschedule-- new referral on 11/28 CARE: Vanishing twin 07/23/2023 024 Overview (12/31/2023): 07/22: Noted to have vanishing twin. S/p counseling NIPT high risk, found evidence of vanishing twin Amnio normal PRINCIPAL BIOSTATISTICIAN Assessment & Plan (12/31/2023 1:11 AM CDT): 07/22: Noted to have vanishing twin. S/p counseling NIPT high risk, found evidence of vanishing twin Amnio normal PRINCIPAL BIOSTATISTICIAN Assessment & Plan (2023 12:16 AM CDT): 07/22: Noted to have vanishing twin. S/p counseling NIPT high risk, found evidence of vanishing twin Not interested in genetic testing at this time CARE: Asthma 07/23/2023 02/18/2024 Overview (12/18/2023): - Severity classification: mild intermittent asthma - Baseline peak flow: Need - Current regimen: albuterol + fluticasone -> 11/29/2023 fluticasone + Symbicort (SMART therapy) S/p counseling 11/28: Ran out of albuterol. Multiple episodes of SOB daily with nightly awakenings due to SOB. Flovent refilled, started on Symbicort smart therapy. 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 Still with nighttime sx. 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 Still with nighttime sx. Assessment & Plan (2023 12:11 AM CDT): - Severity classification: mild intermittent asthma - Baseline peak flow: Need - Current regimen: albuterol + fluticasone -> 11/29/2023 fluticasone + Symbicort (SMART therapy) S/p counseling 11/28: Ran out of albuterol. Multiple episodes of SOB daily with nightly awakenings due to SOB. Flovent refilled, started on Symbicort smart therapy. Plan [] Peak flow as needed [] Serial growth scans and twice weekly NSTs if moderate persistent severe persistent [] PFTs if severe persistent [] Referral to pulmonology if control not adequate, history of life-threatening exacerbation, co-existing pulmonary pathology, severe persistent, or requiring continuous oral corticosteroids or high dose inhaled corticosteroids CARE: 07/21/2023 02/18/2024 Overview (12/31/2023): 1st Trimester: [x] Dating Criteria: L =1 [x] Labs: Rh +, Ab neg, Hgb 10.5, Rubella equivocal, VZV immune, HIV neg, RPR neg, HepBSAg neg, Hep C Ab neg [x] GC/CT/Trich: negx3 [x] UCx: CISG [x] vitamins [x] Genetic Screening: NIPT suggestive of vanishing twin, declines genetic testing [x] CF/SMA carrier screening: neg [x] Hgb electrophoresis: normal [x] Pap: reports normal 2021 [] EPDS: PNB[facility] referral (if indicated) [x] ASA at 12 weeks (if indicated) not indicated [x] DM screening: HgbA1c 4.7% (<5.7: no further test until 2T screen, 5.7-6.5: obtain 2h GTT, >6.5: refer to CDP) [] Feeding Preferences: benefits of discussed with patient at RN IOB 2nd Trimester: [x] Anatomy ultrasound: Completed 09/23, low lying placenta [x] CBC: Hgb 9.7 [x] 1hr GTT (24-28wks): Normal fasting, postprandial glucose per patient report. For A1c with next set of labs. [] Flu Shot (Jan-Apr): [x] Tdap (27-36wks): 12/13/23 [x] Rhogam (if Rh neg): NA, O+ [] Childbirth classes discussed [] education (colostrum, expected breast changes, plan for RTW) and breast pump ordered [] Second trimester education packet 3rd Trimester: [x] CBC/HIV/RPR/T&S: drawn 12/19 [x] GBS: GBSuria 10/14 [] GC/CT/Trich (if indicated): [] RSV vaccine [] Final discussion (S2S, Baby Friendly, LC Support, PP experience) [] Third trimester education packet Last visit: [] Last clinic visit SVE: [] IOL start agent: [] Epidural: [] Consents signed: Counseling: [] Method of delivery: [] Bottle of CHG 4% and hand out provided @ 36wks (if planned) [] Timing of delivery: [] MOC: [] MOF: [] COVID-19 vaccine counseling [] education: completed in all 3 trimesters [] Contract Designer: [] Car seat discussed [] PP depression counseling Assessment & Plan (12/31/2023 1:09 AM CDT): 1st Trimester: [x] Dating Criteria: L =1 [x] Labs: Rh +, Ab neg, Hgb 10.5, Rubella equivocal, VZV immune, HIV neg, RPR neg, HepBSAg neg, Hep C Ab neg [x] GC/CT/Trich: negx3 [x] UCx: CISG [x] vitamins [x] Genetic Screening: NIPT suggestive of vanishing twin, declines genetic testing [x] CF/SMA carrier screening: neg [x] Hgb electrophoresis: normal [x] Pap: reports normal 2021 [] EPDS: PNBHS referral (if indicated) [x] ASA at 12 weeks (if indicated) not indicated [x] DM screening: HgbA1c 4.7% (<5.7: no further test until 2T screen, 5.7-6.5: obtain 2h GTT, >6.5: refer to CDP) [] Feeding Preferences: benefits of discussed with patient at RN IOB 2nd Trimester: [x] Anatomy ultrasound: Completed 09/23, low lying placenta [x] CBC: Hgb 9.7 [x] 1hr GTT (24-28wks): Normal fasting, postprandial glucose per patient report. For A1c with next set of labs. [] Flu Shot (Jan-Apr): [x] Tdap (27-36wks): 12/13/23 [x] Rhogam (if Rh neg): NA, O+ [] Childbirth classes discussed [] education (colostrum, expected breast changes, plan for RTW) and breast pump ordered [] Second trimester education packet 3rd Trimester: [x] CBC/HIV/RPR/T&S: drawn 12/19 [x] GBS: GBSuria 10/14 [] GC/CT/Trich (if indicated): [] RSV vaccine [] Final discussion (S2S, Baby Friendly, LC Support, PP experience) [] Third trimester education packet Assessment & Plan (12/18/2023 11:01 AM CDT): 2nd Trimester: [x] Anatomy ultrasound: Completed 09/23, low lying placenta [x] CBC: Hgb 9.7 [x] 1hr GTT (24-28wks): Normal fasting, postprandial glucose per patient report. For A1c with next set of labs. Cannot stay for labs today due to long appt with amniocentesis. [] Flu Shot (Jan-Apr): [] Tdap (27-36wks): pt amenable on 11/28, will complete at next visit [] Rhogam (if Rh neg): NA, O+ [] Childbirth classes discussed [] education (colostrum, expected breast changes, plan for RTW) and breast pump ordered [] Second trimester education packet 3rd Trimester: [] CBC/HIV/RPR/T&S: [x] GBS: GBSuria 10/14 [] GC/CT/Trich (if indicated): [] RSV vaccine [] Final discussion (S2S, Baby Friendly, LC Support, PP experience) [] Third trimester education packet CARE: Pyelonephritis 07/10/2023 024 Overview (12/18/2023): Required [facility] admission from 07/08-07/11 for pyelonephritis. She was started on ceftriaxone IV 2g (07/09-07/10) and transitioned to oral Keflex 07/10 for a total 7d course (07/09-07/15) 07/22: Patient reports finishing her keflex, not yet started Macrobid suppression. Worried she may be getting another UTI, Udip bland 08/05: Has not been able to take macrobid suppression because she has a hard time taking pills iso of gastric sleeve. Talked with her about mixing in with food, but patient is unable to obtain food given social situation. 08/19: Not taking her liquid macrobid despite antinausea. Discussed mixing it with foods as she is able to tolerate meals. 09/09: Still not able to tolerate her macrobid despite mixing it into yogurt for example. Encouraged her to try to find food to mix in that she can tolerate. 10/14: Not taking suppression. Sent urine culture with CISG, GBS. 10/28: Not taking suppression but wants to try macrobid pills again. Prescription sent. 11/28: Not taking suppression because of persistent N/V. Prescription sent. Send UA/Ucx - negative 12/12: did not milk pickup truck driver macrobid rx yet PLAN: [x] UA sent for culture, plan for targeted abx pending resuls [] Macrobid suppression for remainder of - continue to encourage taking Assessment & Plan (01/21/2024 9:30 PM CDT): Not taking macrobid suppression, cannot tolerate due to nausea. Zofran ODT refilled today Assessment & Plan (12/31/2023 1:16 AM CDT): 12/12: did not milk pickup truck driver macrobid rx yet, also on 12/19 PLAN: [x] UA sent for culture, plan for targeted abx pending resuls [] Macrobid suppression for remainder of - continue to encourage taking Assessment & Plan (12/18/2023 11:00 AM CDT): S/p admission for pyelo in July Has not picked up macrobid suppression yet. Advised to obtain from pharmacy. Assessment & Plan (2023 12:19 AM CDT): Required [facility] admission from 07/08-07/11 for pyelonephritis. She was started on ceftriaxone IV 2g (07/09-07/10) and transitioned to oral Keflex 07/10 for a total 7d course (07/09-07/15). Difficulty taking suppression during . 11/28: Not taking suppression because of persistent N/V. Prescription sent. Send UA/UCx. PLAN: [x] UA sent for culture, plan for targeted abx pending resuls [] Macrobid suppression for remainder of - continue to encourage taking (spontaneous vaginal delivery) 03/21/2012 01/09/2024 Encounters Date Type Department Care Team Description 06/06/2024 Telephone [facility] [address] [place] [address] Outpatient Health 3rd Floor [address] [place] [phone] Marya Awan, RN 05/28/2024 Telephone [facility] [address] [place] [address] Outpatient [place] 3rd Floor [address] [place] [phone] Marya Awan, RN 05/27/2024 Telephone [facility] Psychiatry [address] [place] [address] Health [address] [place] [phone] Rosalie Reyes [facility] Insurance status 05/23/2024 Telephone [facility] Psychiatry [address] [place] [address] [place] [phone] Rosalie Reyes [facility] Resources 05/23/2024 Telephone [facility] [address] [place] [address] Floor [address] [place] [phone] Marya Awan, [place] 05/19/2024 Telephone [facility] [address] [place] [address] Floor [address] [place] [phone] Marya Awan, [place] 05/05/2024 Documentation Psychiatry Jeaneth Agarwal 04/28/2024 4:23 PM OFFLINE EDITOR - 04/28/2024 11:59 PM OFFLINE EDITOR Hospital Encounter [address] [address] care following vaginal delivery Discharge Disposition: Discharge to home or self care 04/28/2024 3:05 PM OFFLINE EDITOR Lab [address] [address] care following vaginal delivery 04/28/2024 2:00 PM OFFLINE EDITOR Office Visit [facility] [address] [place] [address] [place] [phone] Chlesey Grady DO Opioid use disorder (Primary Dx); PTSD (post-traumatic stress disorder) 04/28/2024 12:00 PM OFFLINE EDITOR Office Visit [facility] [address] [place] [address] [place] [phone] care following vaginal delivery (Primary Dx); History of sleeve gastrectomy; Other generalized epilepsy, intractable, with status epilepticus (HCC) 04/14/2024 Telephone [facility] [address] [place] [address] Floor [address] [place] [phone] Marya Awan, ISRA[place] 04/11/2024 Telephone [facility] [address] [place] [address] Floor [address] [place] [phone] Asael Brigidamartina Alonzo LPN 04/11/2024 Telephone [facility] [address] [facility] Outpatient Health 3rd Floor [address] [place] [phone] Marya Awan, ISRAEL 04/08/2024 Documentation Psychiatry Jeaneth Agarwal 04/07/2024 Documentation Psychiatry Jeaneth Agarwal from Last 3 Months Immunizations Immunization Administration Dates Next Due DTaP 12/15/1996, 4,08/18/1992,06/02,02/25/1992 HPV, Quadrivalent 10/13/2010,08/11/2010 Hep B, Unspecified 01/04/2001,12/15/1996 Hib (PRP-T) 10/14/1992,08/18/1992,06/02/1992 IPV 12/15/1996, 3,06/02/1992,02/24 Influenza, Quadrivalent, Spl it, Intramuscular 04/25/2023 Influenza, Trivalent, Preser vative Free, Intramuscular 04/25/2023,03/15/2018,05/03/2017 Influenza, Trivalent, Split, Preservative Free, Intradermal 03/23/2012 MMR 12/15/1996,05/16/1993 PPD TEST 07/25/2021 Pneumococcal Polysaccharide PPV23 07/02/2020, Tdap 12/13/2023,,05/03/2017,03/22 Surgical History Surgery Date Site/Laterality Comments BARIATRIC SURGERY Medical History Medical History Date Comments Asthma CARE: 07/21/2023 1st Trimester: ? Dating Criteria: L =1 ? Labs: Rh +, Ab neg, Hgb 10.5, Rubella equivocal, VZV immune, HIV neg, RPR neg, HepBSAg neg, Hep C Ab neg ? GC/CT/Trich: negx3 ? UCx: CISG ? vitamins ? Genetic Screening: NIPT suggestive of vanishing twin, declines genetic testing ? CF/SMA carrier screening: neg ? Hgb electrophoresis: normal ? Pap: reports normal 2021 ? EPDS: PN CARE: Pyelonephritis 07/10/2023 Required [facility] admission from 07/08-07/11 for pyelonephritis. She was started on ceftriaxone IV 2g (07/09-07/10) and transitioned to oral Keflex 07/10 for a total 7d course (07/09-07/15) 07/22: Patient reports finishing her keflex, not yet started Macrobid suppression. Worried she may be getting another UTI, Frieda colorado 08/05: Has not been able to take macrobid suppression because she has a hard time taking pil CARE: Vanishing twin 07/23/202307/22: Noted to have vanishing twin. S/p counseling NIPT high risk, found evidence of vanishing twin Amnio normal PRINCIPAL BIOSTATISTICIAN CARE: Low-lying placenta - RESOLVED 10/07/2023 13mm from internal os S/p counseling 11/28 update: > 2 cm from internal os Supervision of high-risk pre gnancy, third trimester 11/21/2023 ? Co-management vs. ? Full M FM Care; ? Red Team ? Blue Team Referring Provider: transfer from Care Clinic ? or Medicare Insurance ? Dating Criteria: LMP 05/06/23 with SHAYNE 02/10/24 ? Labs: Rh [O+], Ab [negative], Rubella [equivocal], HIV [non-reactive], HepBSAg [non-reactive], RPR [non-reactive], Hep C [non-reactive], Varicella [positive], GC/CT [negative/negative] ? Aneuploid growth restriction RESOLVED 2023 UAD 97%, elevated S/p HR NIPT for triploidy vs vanishing twin (did have vanishing twin) S/p normal anatomy US S/p amnio 12/12 - CMV neg, aneuscreen normal S/p counseling Plan: ? Growth EFW every 3 weeks with MFM comanaged visit CARE: Asthma 07/23/2023 - Severity class ification: mild intermittent asthma - Baseline peak flow: Need - Current regimen: albuterol + fluticasone -> 11/29/2023 fluticasone + Symbicort (SMART therapy) S/p counseling 11/28: Ran out of albuterol. Multiple episodes of SOB daily with nightly awakenings due to SOB. Flovent refilled, started on Symbicort smart therapy. 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 yet, advised to d Family History Medical History Relation Name Comments Cancer Father Diabetes Father Heart disease Father Stroke Father Diabetes Paternal Grandfather Relation Name Status Comments Father Other sca 7 in family Paternal Grandfather Social History Tobacco Use Types Packs/Day Years Used Date Smoking Tobacco: Never Passive Smoke Exposure: Never Smokeless Tobacco: Never Tobacco Cessation:Counseling Given: Not Answered [facility] Utilities Answer Date Recorded In the past 12 months has th e electric, gas, oil, or water company threatened to shut off services in your home? No 02/05/2024 Social Connection and Isolation Panel [NHANES] A nswer Date Recorded In a typical week, how many times do you talk on the phone with family, friends, or neighbors? Three times a week 02/05/20 How often do you get togethe r with friends or relatives? Once a week 02/05/2024 How often do you attend chur ch or methodist services? Never 02/05/2024 Do you belong to any clubs o r organizations such as anabaptist groups, unions, fraternal or athletic groups, or school groups? No 02/05/2024 How often do you attend meet ings of the clubs or organizations you belong to? Never 02/05/2024 Are you , , di vorced, , never , or living with a partner? Living with partner 02/05/2024 Overall Financial Resource Strain (CARDIA) Answe r Date Recorded How hard is it for you to pa y for the very basics like food, housing, medical care, and heating? Hard 02/05/2024 [facility] [place] [facility] Occupat ional Health - Occupational Stress Questionnaire Answer Date Recorded Do you feel stress - tense, restless, nervous, or anxious, or unable to sleep at night because your mind is troubled all the time - these days? Very much 08/06/2023 Hunger Vital Sign Answer Date Recorded Within the past 12 months, y ou worried that your food would run out before you got the money to buy more. Never true 04/28/20 24 Within the past 12 months, t he food you bought just didn't last and you didn't have money to get more. Never true 04/28/2024 PRAPARE - Transportation Answer Date Re corded In the past 12 months, has l ack of transportation kept you from medical appointments or from getting medications? No 05/2023 In the past 12 months, has l ack of transportation kept you from meetings, work, or from getting things needed for daily living? No 02/05/2024 Housing Stability Vital Sign Answer Librado e Recorded In the last 12 months, was t here a time when you were not able to pay the mortgage or rent on time? Yes 08/07/2023 In the last 12 months, how many places have you lived? 2 08/07/2023 In the last 12 months, was t here a time when you did not have a steady place to sleep or slept in a long term (including now)? Yes 08/07/2023 [place] Depression Scale Answer Date Recorded [place] Depression Scale Total 22 04/28/2024 The thought of harming myself has occurred to me . Never 04/28/2024 Housing Stability Vital Sign Answer Librado e Recorded In the last 12 months, was t here a time when you were not able to pay the mortgage or rent on time? Yes 02/05/2024 In the past 12 months, how m any times have you moved where you were living? 3 02/05/2024 At any time in the past 12 m [facility], were you homeless or living in a long term (including now)? Yes 02/05/2024 Personal Safety Answer Date Recorded Have you ever been in or are you currently in a harmful physical or emotional relationship or is someone making you feel afraid or unsafe? Denies 02/04/2024 Comments No Sex and Gender Information Value Date Recorded Sex Assigned at Not on file Legal Sex Female 8:46 AM OFFLINE EDITOR Gender Identity Not on file Sexual Orientation Not on file Obstetrics History Para Term AB IAB SAB Ectopic Multiple Livin g Live Births 5 4 4 0 1 1 0 4 4 Date Outcome GA Total Labor Labor/2nd/3rd Weight Sex Type Anes PTL Hattie A1 A5 Name Clin 2011 Term Vagina l Livin g 2017 Term Vagina l Livin g 2017 Term 37w 0d Vagina l Livin g Complications: Corinne kee Hypertension 2023 Term 39w 1d 5h 58m 5h 43m/0h 08m/0h 07m 2.68 kg (5 lb 14.5 oz) F Vagina l Epidur al N Livin g 8 9 Jevon'l ani Oscar-L daynae Charlie Coulter MD Complications:None Delivery Location:[facility] ([facility]) Last Filed Vital Signs Vital Sign Reading Time Taken Comments Blood Pressure 113/70 04/28/2024 1:43 PM OFFLINE EDITOR Pulse 84 04/28/2024 1:43 PM OFFLINE EDITOR Temperature 36.6 C (97.9 F) 02/06/2024 11:20 AM CDT Respiratory Rate 18 02/06/2024 11:20 AM CDT Oxygen Saturation 100% 04/28/2024 1:43 PM OFFLINE EDITOR Inhaled Oxygen Concentration - - Weight 60.8 kg (134 lb 1.6 oz) 04/28/2024 1:43 P M OFFLINE EDITOR Height 152.4 cm (5') 02/18/2024 2:10 PM CDT Body Mass Index 26.19 02/18/2024 2:10 PM CDT Plan of Treatment Health Maintenance Due Date Last Done Comments Varicella Vaccines (1 of 2 - 13+ 2-dose series) 11/29/2004 Regular Well Visit/Exam 18-64 11/29/2009 HPV Vaccines (3 - 3-dose series) 02/10/2011 10/14/19 11, 08/11/2010 Pneumococcal vaccine <65 (2 of 2 - PCV) 07/02/2021 07/02/2020, 03/22/2012 Covid-19 Vaccine (4 - 2023-2 5 season) 2024 04/10/2023, 06/03/2021, 05/03/2021 Influenza Vaccine (#1) 2024 , 04/25/2023, 03/15/2018, Additional history exists Cervical Cancer Screening 04/28/2025 04/28/2024, Depression Screening 04/28/2025 04/28/2024 DTaP/Tdap/Td Vaccine (10 - T d or Tdap) 12/12/2033 12/13/2023, 02/06/2022, 05/03/2017, Additional history exists Hepatitis B Screening Completed 01/04/2001, 997 Hepatitis C Screening Completed 04/28/2024, 024 Procedures Procedure Name Priority Date/Time Associated Diagnosis Comments N. GONORRHOEAE/C. TRACHOMATIS AMPLIFICATION Routine 04/28/2024 5:56 PM OFFLINE EDITOR care following vaginal delivery TRICHOMONAS VAGINALIS PCR Routine 04/28/2024 5:56 PM OFFLINE EDITOR care following vaginal delivery RPR Routine 04/28/2024 4:06 PM OFFLINE EDITOR care following vaginal delivery PAP AND HIGH RISK HPV, REFLEX TO GENOTYPING Routine 04/28/2024 1:14 PM OFFLINE EDITOR HIGH RISK HPV DNA DETECTION WITH GENOTYPING Routine 04/28/2024 1:13 PM OFFLINE EDITOR care following vaginal delivery TARGET OPIOID SCREEN BY TRUCK ENGINE TECHNICIAN Routine 04/28/2024 1:13 PM OFFLINE EDITOR care following vaginal delivery DRUGS OF ABUSE SCREEN, URINE WITH REFLEX CONFIRMATION Routine 04/28/2024 1:13 PM OFFLINE EDITOR care following vaginal delivery PAIN MANAGEMENT PROFILE Routine 04/28/2024 1:13 PM OFFLINE EDITOR care following vaginal delivery HIV 1/2 ANTIBODY PLUS P24 ANTIGEN Routine 04/28/2024 1:08 PM OFFLINE EDITOR care following vaginal delivery HEPATITIS B SURFACE ANTIGEN Routine 04/28/2024 1:08 PM OFFLINE EDITOR care following vaginal delivery HEPATITIS C ANTIBODY Routine 04/28/2024 1:08 PM OFFLINE EDITOR care following vaginal delivery from Last 3 Months Results * N. gonorrhoeae/C. trachomatis Amplification Endocervical (04/28/2024 5:56 PM OFFLINE EDITOR) C. trachomatis Not Detected [facility] N. gonorrhoeae Not Detected [facility] Comment: Interpretive Data This assay detects Chlamydia trachomatis and Neisseria gonorrhoeae by nucleic acid amplification testing (NAAT). This assay has been cleared by the [place] Food and Drug administration. The performance characteristics of this test have been verified by the [facility] Molecular Infectious Disease laboratory. The performance characteristics of this test have not been evaluated in individuals less than 14 years of age. Current Interpretive Data was last revised on 2023. Endocervical (None) 04/28/20 5:56 PM OFFLINE EDITOR 04/28/2024 7:29 PM OFFLINE EDITOR Britta Fofana MD LAB MICROBIOLOGY - GENERA L ORDERABLES Final Result Performing Organization Address [facility] de Phone Number TOSHA [facility] Department [place] [address] [facility] * Trichomonas vaginalis PCR Endocervical (04/28/2024 5:56 PM OFFLINE EDITOR) Pathologist [facility] Trichomonas DNA Not Detected [facility] Comment: Interpretive Data This assay detects Trichomonas vaginalis by nucleic acid amplification testing (NAAT). This assay has been cleared by the [place] Food and Drug administration. The performance characteristics of this test have been verified by the [facility] Molecular Infectious Disease laboratory. The performance of this test has not been evaluated in individuals less than 18 years of age. Current Interpretive Data was last revised on 2023. Endocervical 04/28/2024 5:56 PM OFFLINE EDITOR 04/28/2024 7:29 PM OFFLINE EDITOR Britta Fofana MD LAB MICROBIOLOGY - GENERA L ORDERABLES Final Result Performing Organization Address [facility] de Phone Number [facility] Department [place] [address] [facility] * RPR Blood (04/28/2024 4:06 PM OFFLINE EDITOR) RPR Nonreactive Nonreactive Blood 04/28/2024 4:06 PM OFFLINE EDITOR 04/28/2024 4:06 PM OFFLINE EDITOR Britta Fofana MD LAB MICROBIOLOGY - GENERA L ORDERABLES Final Result Performing Organization Address [facility] de Phone Number TOSHA [facility] Department [place] [address] * Pap and High Risk HPV and Genotyping (Cytology Component) (04/28/2024 1:14 PM OFFLINE EDITOR) Pap test 04/28/2024 1:14 PM OFFLINE EDITOR 04/28/2024 4:20 PM OFFLINE EDITOR Narrative 05/05/2024 1:58 PM OFFLINE EDITOR EPIC results best viewed via link to PDF [facility] [place] [address] Note to Patients: This report may contain a detailed description of human tissue sent by a health care provider to the laboratory for pathologic evaluation. The content of this report is essential for diagnosis and may provide important critical findings. This information may be unfamiliar to patients to review without a medical professional present. It is advised that the patient review this report in the presence of a health care provider who can answer questions and explain the details. CYTOPATHOLOGY REPORT FINAL Patient Name: STACIA ALVAREZ Gender: Josefa : 1990 (Age: 33) Address: [address] [place] [address] [facility] #: [id number] Service: UNKNOWN Location: Patient Type: [facility] SPECIMEN Taken: 04/28/2024 Received: 04/28/2024 Accessioned: 04/28/2024 Reported: 05/05/2024 Physician(s): Britta Fofana MD FINAL INTERPRETATION SOURCE OF SPECIMEN Liquid based Thin Prep pap with HPV: STATEMENT OF ADEQUACY - Satisfactory for evaluation - Endocervical cells/transformation zone sample present GENERAL CATEGORIZATION: - Negative for squamous intraepithelial lesion or malignancy Comments (Normal-Negative for High Risk HPV) HPV HR 16- Not detected HPV HR 18-Not detected HPV HR non 16/18- Not detected Interpretive Data Nucleic acid amplification for detection of high-risk Human Papilloma virus (HPV) is performed by the Brenardino Rain 6800 HPV test. This assay specifically detects HPV- 16 and HPV-18 genotypes. The following HPV genotypes are detected as high-risk HPV: HPV-31, 33, 35, 39, 45, 51, 52, 56, 58, 59, 66, and 68. This assay has been approved by the [place] Food and Drug Administration for detection of HPV in cervical specimens collected by a physician using an endocervical brush/spatula or cervical broom and placed in the ThinPrep Pap Test PreservCyt collection containers. The performance characteristics of this test have been verified by the [facility] Infectious Disease laboratory. Correlate with reported cytology results, as applicable. Interpretive data last revised 22 jhosie/05/05/2024 13:58 MOHIT Naylor(ASCP) Report Electronically Reviewed and Signed Out By MOHIT Naylor(ASC) 05/05/2024 13:58:57 Cervicovaginal Cytology (Pap Test) Disclaimer: The Pap test is a screening test used to detect cervical cancer and its precursors; it is not a diagnostic procedure. False negative and false positive results do occur. Pap test results should be interpreted in the context of pertinent clinical information and biopsy results as indicated. [facility] Clinical Laboratory Improvement Amendments (CLIA) mandate that cytologic and histologic results be correlated for laboratory quality control head & improvement standards. FOR ALL HIGH-GRADE CASES we request submission of follow-up histological material and/or reports that have not been previously provided so that we may fulfill said required standards. Gross Description A. Liquid based Thin Prep pap with HPV: Cervical/vaginal - Screening ThinPrep Clinical Diagnosis and History Last Menstrual Period: unknown The patient is a 33 year old female with follow up careof vaginal delivery. Report Images and scanned documents, if included only viewable in PDF version The performance characteristics of some immunohistochemical stains, in-situ hybridization and fluorescence in-situ hybridization tests and immunophenotyping by flow cytometry cited in this report (if any) were determined by the Surgical Pathology Department at [facility] as part of an ongoing quality reviewer program and in compliance with federally mandated regulations drawn from the Clinical Laboratory Improvement Act of 1988 (CLIA '88). Some of these tests rely on the use of analyte specific reagents and are subject to specific labeling requirements by the [place] Food and Drug Administration. Such diagnostic tests may only be performed in a facility that is certified by the Department of Health and Human Services as a high complexity laboratory under CLIA '88. The FDA has determined that such clearance or approval is not necessary. This test is used for clinical purposes. It should not be regarded as investigational or for research. Nevertheless, federal rules concerning the medical use of analyte specific reagents require that the following disclaimer be attached to the report: This test was developed and its performance characteristics determined by the Surgical Pathology Department of [facility]. It has not been cleared or approved by the [place]. [place]. Food and Drug Administration. Britta Fofana MD LAB CYTOLOGY ORDERABLES F inal Result * High Risk HPV DNA Detection with Genotyping (Molecular component) (04/28/2024 1:13 PM OFFLINE EDITOR) HPV HR 16 Not Detected Not Detected [facility] HPV HR 18 Not Detected Not Detected TOSHA [facility] HPV HR Non 16/18 Not Detected Not Detected TOSHA [facility] Comment: Interpretive Data Nucleic acid amplification for detection of high-risk Human Papilloma virus (HPV) is performed by the Bernardino Rain 6800 HPV test. This assay specifically detects HPV-16 and HPV-18 genotypes. The following HPV genotypes are detected as high-risk HPV: HPV-31, 33, 35, ,39, 45, 51, 52, 56, 58, 59, 66, and 68. This assay has been approved by the [place] Food and Drug Administration for detection of HPV in cervical specimens collected by a physician using an endocervical brush/spatula or cervical broom and placed in the ThinPrep Pap Test PreservCyt collection containers. The performance characteristics of this test have been verified by the [facility] Molecular Infectious Disease laboratory. Correlate with separately reported cytology results, as applicable. Interpretive data last revised 22 Endocervical 04/28/2024 1:13 PM OFFLINE EDITOR 04/29/2024 9:10 AM OFFLINE EDITOR Narrative TOSHA JUARES - 05/01/2024 6:55 PM OFFLINE EDITOR Clinical history and diagnosis->screening Testing type->Screening Last menstrual period (date if known)->unk Britta Fofana MD LAB BODY FLUIDS AND STOOL S ORDERABLES Final Result TOSHA JUARES [facility] Department [place] [address] [facility] * Targeted Opioid Screen, Ur (04/28/2024 1:13 PM OFFLINE EDITOR) [facility] Pain mgt 6-Acetylmorphine, Ur Not Detected CutOff 10 ng/mL Pain mgt Buprenorphine, Ur Detected CutOff 5 ng/mL [facility] Pain mgt Buprenorphine metabolite (Norbuprenorphine), Ur Detected CutOff 5 ng/mL [facility] Pain mgt Codeine, Ur Not Detected CutOff 25 ng/mL [facility] Pain mgt Hydrocodone, Ur Not Detected CutOff 25 ng/mL [facility] Pain mgt Hydromorphone, Ur Not Detected CutOff 25 ng/mL [facility] Pain mgt Methadone, Ur Not Detected CutOff 25 ng/mL [facility] Pain mgt Methadone Metabolite (EDDP), Ur Not Detected CutOff 25 ng/mL [facility] Pain mgt Morphine, Ur Not Detected CutOff 25 ng/mL [facility] Pain mgt Oxycodone, Ur Not Detected CutOff 25 ng/mL [facility] Pain mgt Oxymorphone, Ur Not Detected CutOff 25 ng/mL [facility] Pain mgt Tapentadol, Ur Not Detected CutOff 25 ng/mL [facility] Pain mgt Tramadol, Ur Not Detected CutOff 25 ng/mL [facility] Pain mgt Tramadol metabolite (O-desmethyltramado l), Ur Not Detected CutOff 25 ng/mL [facility] Comment: Interpretive Data This test only detects free, unconjugated drugs. The absence of expected drug(s) and/or metabolite(s) may indicate non-compliance, inappropriate timing of specimen collection relative to the time of dosing, variability in absorption, diluted or adulterated urine, or other testing limitations. Questions concerning interpretation should be directed to the laboratory. The results of this test are to be used only for medical purposes and are not suitable for forensic use. This test was developed and its performance characteristics determined by [facility]. It has not been cleared or approved by the [place].S. Food and Drug Administration. Current interpretive data was last revised 18. Pain mgt Naloxone, ur Not Detected cutoff 20 ng/ml [facility] Urine 04/28/2024 1:13 PM OFFLINE EDITOR 04/28/2024 5:57 PM OFFLINE EDITOR Britta Fofana MD LAB URINE ORDERABLES Estee kahn Result [facility] Department [place] [address] * (ABNORMAL) Drugs of Abuse Screen, Urine with Reflex Confirmation (04/28/2024 1:13 PM OFFLINE EDITOR) Amphetamine, ur Not Detected CutOff 500ng/mL Comment: Interpretive Data - Amphetamines: Samples containing greater than 500 ng/mL d-methamphetamine or other cross-reacting amphetamine compounds are reported as positive. Amphetamine immunoassays are subject to significant false positive rates due to cross-reactivity of non-amphetamine drugs. Confirmatory testing required for definitive results. Current Interpretive Data was last reviewed 2022. Barbiturates, ur Not Detected CutOff 200ng/mL TOSHA [facility] Comment: Interpretive Data - Barbiturates: Samples containing greater than 200 ng/mL secobarbital or other cross-reacting barbiturate compounds are reported as positive. False positive and false negative results are possible. Confirmatory testing required for definitive results. Current Interpretive Data was last reviewed 2022. Benzodiazepines, ur Not Detected CutOff 100ng/mL TOSHA [facility] Comment: Interpretive Data - Benzodiazepines: Samples containing greater than 100 ng/mL nordiazepam or other cross-reacting compounds are reported as positive. False positive and false negative results are possible. Confirmatory testing required for definitive results. Current Interpretive Data was last reviewed 2022. Cannabinoids, ur Screen Positive, presumptive (A) CutOff 50 ng/mL TOSHA [facility] Comment: Interpretive Data - Cannabinoids: Samples containing greater than 50 ng/mL delta-9 THC -COOH or other cross- reacting compounds are reported as positive. False positive and false negative results are possible. Confirmatory testing required for definitive results. Current Interpretive Data was last reviewed 2022. Cocaine, ur Not Detected CutOff 150ng/mL TOSHA [facility] Comment: Interpretive Data - Cocaine: Samples containing greater than 150 ng/mL benzoylecgonine or other cross- reacting compounds are reported as positive. False positive and false negative results are possible. Confirmatory testing required for definitive results. Current Interpretive Data was last reviewed 2022. Fentanyl, Ur Not Detected CutOff 5 ng/mL [facility] Comment: Interpretive Data - Fentanyl: Samples containing greater than 5 ng/mL norfentanyl, fentanyl, or other cross-reacting fentanyl compounds are reported as positive. False positive and false negative results are possible. Confirmatory testing required for definitive results. Current Interpretive Data was last reviewed 2023. Methadone, ur Not Detected CutOff 300ng/mL [facility] Comment: Interpretive Data - Methadone: Samples containing greater than 300 ng/mL d,l-methadone or other cross-reacting compounds are reported as positive. False positive and false negative results are possible. Confirmatory testing required for definitive results. Current Interpretive Data was last reviewed 2022. Opiates, ur Not Detected CutOff 300ng/mL TOSHA [facility] Comment: Interpretive Data - Opiates: Samples containing greater than 300 ng/mL morphine or other cross-reacting compounds are reported as positive. False positive and false negative results are possible. Confirmatory testing required for definitive results. Current Interpretive Data was last reviewed 2022. Oxycodone, ur Not Detected CutOff 100ng/mL [facility] Comment: Interpretive Data - Oxycodone: Samples containing greater than 100 ng/mL oxycodone or other cross-reacting compounds are reported as positive. False positive and false negative results are possible. Confirmatory testing required for definitive results. Current Interpretive Data was last reviewed 2022. Phencyclidine, ur Not Detected CutOff 25 ng/mL [facility] Comment: Interpretive Data - Phencyclidine: Samples containing greater than 25 ng/mL phencyclidine or other cross-reacting compounds are reported as positive. False positive and false negative results are possible. Confirmatory testing required for definitive results. Current Interpretive Data was last reviewed 2022. Urine Creatinine 178 mg/dL [facility] Comment: Interpretive Data Urine Creatinine: < 10 mg/dL is extremely dilute = or > 10 but < 20 mg/dL is dilute = or > 20 mg/dL is normal Current Interpretive Data was last revised on 2017. Urine 04/28/2024 1:13 PM OFFLINE EDITOR 04/28/2024 5:57 PM OFFLINE EDITOR Narrative [facility] - 04/28/2024 6:44 PM OFFLINE EDITOR Drug of Abuse screening is performed by immunoassay for medical purposes only. This is not to be used for Pain Management purposes. If Detected, confirmation testing will be performed for Amphetamines, Cocaine, Fentanyl, Methadone, Opiates, Oxycodone or Phencyclidine. Britta Fofana MD LAB URINE ORDERABLES Estee l Result Performing Organization Address [facility] de Phone Number [facility] [place] [address] * HIV 1/2 Antibody plus p24 Antigen Blood (04/28/2024 1:08 PM OFFLINE EDITOR) HIV 1/2 ab + p24 ag Nonreactive Nonreactive Comment:Nonreactive for HIV- 1 antigen and HIV-1/HIV-2 antibodies. No laboratory evidence of HIV infection. If acute HIV infection is suspected, consider testing for HIV-1 RNA. Current interpretive data was last revised on 22. Blood 04/28/2024 1:08 PM OFFLINE EDITOR 04/28/2024 3:52 PM OFFLINE EDITOR Britta Fofana MD LAB MICROBIOLOGY - GENERA L ORDERABLES Final Result Performing Organization Address [facility] Co de Phone Number [facility] [place] [address] * Hepatitis C antibody Blood (04/28/2024 1:08 PM OFFLINE EDITOR) Hep C Ab Nonreactive Nonreactive Comment:Antibodies to HCV no t detected. Does NOT exclude the possibility of recent exposure to HCV. Current interpretive data was last revised on 22 Blood 04/28/2024 1:08 PM OFFLINE EDITOR 04/28/2024 3:52 PM OFFLINE EDITOR Britta Fofana MD LAB MICROBIOLOGY - GENERA L ORDERABLES Final Result TOSHA JUARES [facility] Department [place] [address] * Hepatitis B Surface Antigen Blood (04/28/2024 1:08 PM OFFLINE EDITOR) HepBsAg Nonreactive Nonreactive Blood 04/28/2024 1:08 PM OFFLINE EDITOR 04/28/2024 3:52 PM OFFLINE EDITOR us Britta Fofana MD LAB MICROBIOLOGY - GENERA L ORDERABLES Final Result Performing Organization Address [facility] Co de Phone Number TOSHA JUARES [facility] [place] [address] from Last 3 Months Insurance [facility] Advance Directives For more information, please contact: [phone] * Full Code (Latest Code Status on File) Date Activated Date Inactivated Comments 02/04/2024 10:52 PM 02/06/2024 6:51 PM * Full Code Date Activated Date Inactivated Comments 08/06/2023 4:31 PM 02/04/2024 10:52 PM * Full Code Date Activated Date Inactivated Comments 07/10/2023 2:21 AM 07/12/2023 7:18 PM Care Teams Glass Block Bender Relationship Specialty Start Date End Date No, Physician PCP - General 07/09/23
--- OUTSIDE RECORDS SUMMARY | 2024-06-23 06:02 | XMS_ITS | Referral Summary ---
Author Organization [facility] Address [address] [place] [address] Care Team Providers Care Varnish Finisher Name Role Phone No, Physician Primary Care Provider [phone] Encounters Date Type Department Care Team Description 06/06/2024 Telephone [facility] [address] [place] [address] Outpatient Health 3rd Floor [address] [place] [phone] Marya Awan, [place] 05/28/2024 Telephone [facility] Clinic [address] [place] [address] Outpatient Health 3rd Floor [address] [place] [phone] Marya Awan, [place] 05/27/2024 Telephone [facility] Psychiatry [address] [place] [address] Outpatient Health [address] [place] [phone] [facility] [place] 05/23/2024 Telephone [facility] Psychiatry [address] [place] [address] Outpatient Health [address] [place] [phone] [facility] [place] 05/23/2024 Telephone [facility] [address] [place] [address] Outpatient [facility] 3rd Floor [address] [place] [phone] Marya Awan, [place]RA[place] 05/19/2024 Telephone [facility] [address] [place] [address] Outpatient Health [facility] Floor [address] [place] [phone] Marya Awan, [place]RA[place] 05/05/2024 Documentation Psychiatry Jeaneth Agarwal 04/28/2024 4:23 PM MENTAL HEALTH TECHNICIAN - 04/28/2024 11:59 PM MENTAL HEALTH TECHNICIAN Hospital Encounter [facility] [address] [place] [address] care following vaginal delivery Discharge Disposition: Discharge to home or self care 04/28/2024 3:05 PM MENTAL HEALTH TECHNICIAN Lab [facility] Health [address] [place] [phone] care following vaginal delivery 04/28/2024 2:00 PM MENTAL HEALTH TECHNICIAN Office Visit [facility] Clinic [address] [place] [address] Floor [address] [place] [phone] Chelsey Grady DO Opioid use disorder (Primary Dx); PTSD (post-traumatic stress disorder) 04/28/2024 12:00 PM MENTAL HEALTH TECHNICIAN Office Visit [facility] Clinic [address] [place] [address] [place] [phone] care following vaginal delivery (Primary Dx); History of sleeve gastrectomy; Other generalized epilepsy, intractable, with status epilepticus (HCC) 04/14/2024 Telephone [facility] [address] [place] [address] Floor [address] [place] [phone] Marya Awan RN 04/11/2024 Telephone [facility] [address] [place] [address] Floor [address] [place] [phone] Brigida Vyas LPN 04/11/2024 Telephone [facility] [address] [place] [address] Floor [address] [place] [phone] Marya Awan, [place]RA[place] 04/08/2024 Documentation Psychiatry Jeaneth Agarwal 04/07/2024 Documentation Psychiatry Jeaneth Agarwal from Last 3 Months Allergies Active Allergy Reactions Criticality Noted Date [...] if no or minimal response. 5 each 07/23/19 Active alcohol swabs pads, medicated Apply 1 each topically 4 (four) times a day 100 each 10/15/19 Active Additional Information Patient not taking.Reported on 01/18/2024 lancets 33 gauge misc 1 Units 4 (four) times a day 100 each 10/15/19 Active Additional Information Patient not taking.Reported on 01/18/2024 empty container (sharps container) misc 1 each 4 (four) times a day 1 each 10/15/19 Active Additional Information Patient not taking.Reported on 01/18/2024 albuterol HFA (PROVENTIL HFA,VENTOLIN HFA,PROAIR HFA) 90 mcg/actuation inhaler Inhale 2 puffs every 6 (six) hours as needed for wheezing 1 each 01/18/20 24 025 Active loratadine (CLARITIN) 10 mg tablet Take 1 tablet (10 mg total) by mouth daily 30 tablet 01/18/20 025 Active budesonide-formote roL (SYMBICORT) 80-4.5 mcg/actuation inhaler Inhale 1 puff 2 (two) times a day Rinse mouth with water after use. Do not swallow. An as needed. 1 each 01/18/20 24 Active prochlorperazine (COMPAZINE) 5 mg tablet Take 1 tablet (5 mg total) by mouth every 6 (six) hours as needed for nausea or vomiting 30 tablet 01/18/20 24 Active ondansetron ODT (ZOFRAN-ODT) 4 mg disintegrating tablet Take 1 tablet (4 mg total) by mouth every 6 (six) hours as needed for nausea or vomiting 30 tablet 01/18/20 24 Active fluticasone furoate-vilanteroL (BREO ELLIPTA) 200-25 mcg/dose diskus inhaler Inhale 1 puff daily Rinse mouth with water after use. Do not swallow. 9 each 3 02/06/20 24 Active PNV with fnbfeoy-jfup-LI 27 mg iron- 1 mg tabletIndications: Vitamin [...] 2 (two) times a day 60 tablet 11 04/28/[address] (PROTONIX) 20 mg EC tabletIndications: care following vaginal delivery Take 1 tablet (20 mg total) by mouth daily 30 tablet 11 04/28/20 24 025 Active lacosamide (VIMPAT) 10 [...] Blood pressures well-controlled on no agents # IN Asthma: - Well controlled with regimen of [...] For UDS on admission. For SW . #IN Asthma: Patient reports only using PRN inhaler [...] normal S/p counseling Plan: [x] Amniocentesis for FLEXO OPERATOR (and CMV if gestational age <32 weeks at diagnosis) - s/p amnio 12/12 [x] Twice weekly testing with UA dopplers/BPP alternating with NST (usually or schedule) - she is unable to have [...] normal S/p counseling Plan: [x] Amniocentesis for FLEXO OPERATOR (and CMV if gestational age <32 weeks at diagnosis) - s/p amnio 12/12 [] Twice weekly testing with UA dopplers/BPP alternating with NST (usually or schedule) - she is unable to have [...] for NICU admission and depending on etiology, buttermaker continuous churn metabolic, cardiovascular, or neurologic abnormalities. Despite the [...] between 30-37 weeks. Plan: [] Amniocentesis for FLEXO OPERATOR (and CMV if gestational age <32 weeks [...] Overview (01/21/2024): [] Co-management vs. [x] Full MFM Care; [x] Red Team [] Blue Team Referring Provider: transfer from Care Clinic [] or Medicare Insurance [x] Dating [...] and wnl [x] CBC/1hr gtt at 24-28wks: 610 CBC Hgb 9.7/Plt 338. Iron infusion scheduled [...] counseled 01/17 [] Method of feeding: [] Can Sterilizer: [] PP Depression Discussed: Assessment & Plan [...] counseled 01/17 [] Method of feeding: [] Can Sterilizer: [] PP Depression Discussed: Assessment & Plan [...] & Plan (2023 12:21 AM CDT): Full MFM Care. Recommend tdap today. Plan for 3T [...] in place. Reports it was placed at [facility] prior to gastric sleeve and has required multiple revisions. - States that it was placed for different infusions including remicade for rare skin disease. Has not used port in over 3 years. - s/p uncomplicated removal with [facility] on 08/07/23 Assessment & Plan (2023 12:09 AM CDT): - Patient with port in place. Reports it was placed at [facility] prior to gastric sleeve and has required [...] taking half dose 10/28: doing well on 1/ film suboxone TID, denies withdrawal, cravings. UDS +buprenorphine, THC 11/28: Taking suboxone intermittently due to N/V and severe GERD. Denies withdrawal, cravings. UDS ordered 12/12: Doing well, taking suboxone intermittently. No refill needed today. No cravings or withdrawal sx. 12/19: continuing to do well and having no acute issues on suboxone 01/08: refill for one week to pharmacy in [place], [place] 01/17: refill for [address] [facility] CURRENT REGIMEN: suboxone 8-2mg 1 film BID to TID PRN (increased 02/17 at 2 week PP visit) [x] Narcan Rx given: Yes Date: 07/22 [] PDMP Review: [] Qtrimester CMP: 1T, 2T wnl [x] Social work referral Assessment & Plan (01/21/2024 9:29 PM CDT): 01/17: refill for [address] [facility] CURRENT REGIMEN: 1/2 film suboxone 8-2mg TID [x] Narcan Rx given: Yes Date: 07/22 [] PDMP Review: [] Qtrimester CMP: 1T, 2T wnl [x] Social work referral [] Third trimester Psychiatry visit: PN attempted call on 01/20 [x] Third trimester anesthesia consult:completed 12/23 [x] Third trimester Medicine consult: 12/27/23 [] Third trimester Hepatitis [...] needs to be rescheduled [x] Third trimester [facility] consult: scheduled on 12/27/23 [] Third [...] needs to be rescheduled [] Third trimester Medicine consult: scheduled on 12/27/23 [] Third [...] taking half dose 10/28: doing well on 1/ film suboxone TID, denies withdrawal, cravings. UDS [...] Third trimester anesthesia consult: [] Third trimester Medicine consult: [] Third trimester Hepatitis C antibody: [] 32-34 week growth scan: Suboxone prescription given today: 8-2mg TID mg x 21. Will work to set up consults for follow up. CARE: H/O gastric sleeve 07/23/202303/2024 Overview (01/21/2024): History: Patient had gastric sleeve surgery 05/18/2020 through [facility], without recent post-op followup S/p Counseling S/p [...] - Rx sent 07/22 [x] Referral to [facility] Bariat[facility] Surgery - no showed appt scheduled 10/01, plan to reschedule-- new referral on 11/28 Assessment & Plan (01/21/2024 9:33 PM CDT): 3T labs completed Iron infusion completed 01/01 Zinc rx resent Assessment & Plan (12/31/2023 1:09 AM CDT): History: Patient had gastric sleeve surgery 05/18/2020 through [facility], without recent post-op followup S/p Counseling S/p [...] vitamin D 16, ferritin 8, folate wnl 15 ordered [x] Rx for vitamin B and vitamin D [x] 800-1000mcg Folic acid - Rx sent 07/22 [x] Referral to [facility] B[facility] Surgery - no showed appt scheduled [...] - Rx sent 07/22 [x] Referral to [facility] B[facility] Surgery - no showed appt scheduled 10/01, plan to reschedule-- new referral on 11/28 Assessment & Plan (2023 12:13 AM CDT): History: Patient had gastric sleeve surgery 05/18/2020 through [facility], without recent post-op followup S/p Counseling S/p [...] - Rx sent 07/22 [x] Referral to [facility] Bariat[facility] Surgery - no showed appt scheduled 10/01, plan to reschedule-- new referral on 11/28 CARE: Vanishing twin 07/23/2023 024 Overview (12/31/2023): 07/22: Noted to have vanishing twin. S/p counseling NIPT high risk, found evidence of vanishing twin Amnio normal FLEXO OPERATOR Assessment & Plan (12/31/2023 1:11 AM CDT): 07/22: Noted to have vanishing twin. S/p counseling NIPT high risk, found evidence of vanishing twin Amnio normal FLEXO OPERATOR Assessment & Plan (2023 12:16 AM CDT): [...] on Symbicort smart therapy. 12/12: Had not orange picking supervisor Symbicort yet, advised to do so. Still [...] (12/18/2023 11:04 AM CDT): 12/12: Had not orange picking supervisor Symbicort yet, advised to do so. Still [...] education: completed in all 3 trimesters [] Can Sterilizer: [] Car seat discussed [] PP depression [...] [x] CBC/HIV/RPR/T&S: drawn 12/19 [x] GBS: GBSuria /10 [] GC/CT/Trich (if indicated): [] RSV vaccine [...] 3rd Trimester: [] CBC/HIV/RPR/T&S: [x] GBS: GBSuria 10 [] GC/CT/Trich (if indicated): [] RSV vaccine [...] Send UA/Ucx - negative 12/12: did not orange picking supervisor macrobid rx yet PLAN: [x] UA sent for culture, plan for targeted abx pending resuls [] Macrobid suppression for remainder of - continue to encourage taking Assessment & Plan (01/21/2024 9:30 PM CDT): Not taking macrobid suppression, cannot tolerate due to nausea. Zofran ODT refilled today Assessment & Plan (12/31/2023 1:16 AM CDT): 12/12: did not orange picking supervisor macrobid rx yet, also on 12/19 PLAN: [...] encourage taking (spontaneous vaginal delivery) 03/21/2012 01/09/2024 Immunizations Immunization Administration Dates Next Due DTaP 12/15/1996, 4,08/18/1992,06/02,02/25/1992 HPV, Quadrivalent 10/13/2010,08/11/2010 Hep B, Unspecified 01/04/2001,12/15/1996 Hib (PRP-T) 10/14/1992,08/18/1992,06/02/1992 IPV 12/15/1996, 3,06/02/1992,02/24 Influenza, Quadrivalent, Spl it, Intramuscular 04/25/2023 Influenza, Trivalent, Preser vative Free, Intramuscular 04/25/2023,03/15/2018,05/03/2017 Influenza, Trivalent, Split, Preservative Free, Intradermal 03/23/2012 MMR 12/15/1996,05/16/1993 PPD TEST 07/25/2021 Pneumococcal Polysaccharide PPV23 07/02/2020, Tdap 12/13/2023,,05/03/2017,03/22 Social History Tobacco Use Types Packs/Day Years Used Date Smoking Tobacco: Never Passive Smoke Exposure: Never Smokeless Tobacco: Never Tobacco Cessation:Counseling Given: Not Answered [facility] Utilities Answer Date Recorded In the past 12 months has [employer], gas, oil, or water [employer] threatened to shut off services in your home? No 02/05/2024 Social Connection and Isolation Panel [NHANES] A nswer Date Recorded In a typical week, how many times do you talk on the phone with family, friends, or neighbors? Three times a week 02/05/20 How often do you get togethe r with friends or relatives? Once a week 02/05/2024 How often do you attend [facility] or hoahaoism services? Never 02/05/2024 Do you belong to any clubs o r organizations such as yazdanism groups, unions, fraternal or athletic groups, or [...] housing, medical care, and heating? Hard 02/05/2024 [facility] - Occupational Stress [...] place to sleep or slept in a half-way (including now)? Yes 08/07/2023 Levant Depression Scale Answer Date Recorded Levant Depression Scale Total 22 04/28/2024 The thought [...] any time in the past 12 m [facility], were you homeless or living in a half-way (including now)? Yes 02/05/2024 Personal Safety Answer Date Recorded Have you ever been in or are you currently in a harmful physical or emotional relationship or is someone making you feel afraid or unsafe? Denies 02/04/2024 Comments No Sex and Gender Information Value Date Recorded Sex Assigned at Not on file Legal Sex Female 8:46 AM MENTAL HEALTH TECHNICIAN Gender Identity Not on file Sexual Orientation Not on file Last Filed Vital Signs Vital Sign Reading Time Taken Comments Blood Pressure 113/70 04/28/2024 1:43 PM MENTAL HEALTH TECHNICIAN Pulse 84 04/28/2024 1:43 PM MENTAL HEALTH TECHNICIAN Temperature 36.6 C (97.9 F) 02/06/2024 11:20 AM CDT Respiratory Rate 18 02/06/2024 11:20 AM CDT Oxygen Saturation 100% 04/28/2024 1:43 PM MENTAL HEALTH TECHNICIAN Inhaled Oxygen Concentration - - Weight 60.8 kg (134 lb 1.6 oz) 04/28/2024 1:43 P M MENTAL HEALTH TECHNICIAN Height 152.4 cm (5') 02/18/2024 2:10 PM CDT Body Mass Index 26.19 02/18/2024 2:10 PM CDT Plan of Treatment Not on file Procedures Procedure Name Priority Date/Time Associated Diagnosis Comments N. GONORRHOEAE/C. TRACHOMATIS AMPLIFICATION Routine 04/28/2024 5:56 PM MENTAL HEALTH TECHNICIAN care following vaginal delivery TRICHOMONAS VAGINALIS PCR Routine 04/28/2024 5:56 PM MENTAL HEALTH TECHNICIAN care following vaginal delivery RPR Routine 04/28/2024 4:06 PM MENTAL HEALTH TECHNICIAN care following vaginal delivery PAP AND HIGH RISK HPV, REFLEX TO GENOTYPING Routine 04/28/2024 1:14 PM MENTAL HEALTH TECHNICIAN HIGH RISK HPV DNA DETECTION WITH GENOTYPING Routine 04/28/2024 1:13 PM MENTAL HEALTH TECHNICIAN care following vaginal delivery TARGET OPIOID SCREEN BY TILE MOLDER Routine 04/28/2024 1:13 PM MENTAL HEALTH TECHNICIAN care following vaginal delivery DRUGS OF ABUSE SCREEN, URINE WITH REFLEX CONFIRMATION Routine 04/28/2024 1:13 PM MENTAL HEALTH TECHNICIAN care following vaginal delivery PAIN MANAGEMENT PROFILE Routine 04/28/2024 1:13 PM MENTAL HEALTH TECHNICIAN care following vaginal delivery HIV 1/2 ANTIBODY PLUS P24 ANTIGEN Routine 04/28/2024 1:08 PM MENTAL HEALTH TECHNICIAN care following vaginal delivery HEPATITIS B SURFACE ANTIGEN Routine 04/28/2024 1:08 PM MENTAL HEALTH TECHNICIAN care following vaginal delivery HEPATITIS C ANTIBODY Routine 04/28/2024 1:08 PM MENTAL HEALTH TECHNICIAN care following vaginal delivery from Last 3 Months Results * N. gonorrhoeae/C. trachomatis Amplification Endocervical (04/28/2024 5:56 PM MENTAL HEALTH TECHNICIAN) C. trachomatis Not Detected [facility] N. gonorrhoeae Not Detected TOSHA JUARES Comment: Interpretive Data This assay detects Chlamydia trachomatis and Neisseria gonorrhoeae by nucleic acid amplification testing (NAAT). This assay has been cleared by the [place] Food and Drug administration. The performance characteristics of this test have been verified by the [facility] Molecular Infectious Disease laboratory. The performance characteristics of this test have not been evaluated in individuals less than 14 years of age. Current Interpretive Data was last revised on 2023. Endocervical (None) 04/28/20 5:56 PM MENTAL HEALTH TECHNICIAN 04/28/2024 7:29 PM MENTAL HEALTH TECHNICIAN Britta Fofana MD LAB MICROBIOLOGY - GENERA L ORDERABLES Final Result [facility]OSHA [facility] Department [place] [address] [facility] * Trichomonas vaginalis PCR Endocervical (04/28/2024 5:56 PM MENTAL HEALTH TECHNICIAN) Trichomonas DNA Not Detected [facility] Comment: Interpretive Data This assay detects Trichomonas vaginalis by nucleic acid amplification testing (NAAT). This assay has been cleared by the [place] Food and Drug administration. The performance characteristics of this test have been verified by the [facility] Molecular Infectious Disease laboratory. The performance of this test has not been evaluated in individuals less than 18 years of age. Current Interpretive Data was last revised on 2023. Endocervical 04/28/2024 5:56 PM MENTAL HEALTH TECHNICIAN 04/28/2024 7:29 PM MENTAL HEALTH TECHNICIAN Britta Fofana MD LAB MICROBIOLOGY - GENERA L ORDERABLES Final Result Performing Organization Address City/[facility]/ZIP Co de Phone Number [facility] Department [place] [address] [facility] * RPR Blood (04/28/2024 4:06 PM MENTAL HEALTH TECHNICIAN) RPR Nonreactive Nonreactive Blood 04/28/2024 4:06 PM MENTAL HEALTH TECHNICIAN 04/28/2024 4:06 PM MENTAL HEALTH TECHNICIAN Britta Fofana MD LAB MICROBIOLOGY - GENERA L ORDERABLES Final Result Performing Organization Address City/[facility] Co de Phone Number [facility] Department [place] [address] * Pap and High Risk HPV and Genotyping (Cytology Component) (04/28/2024 1:14 PM MENTAL HEALTH TECHNICIAN) Pap test 04/28/2024 1:14 PM MENTAL HEALTH TECHNICIAN 04/28/2024 4:20 PM MENTAL HEALTH TECHNICIAN Narrative 05/05/2024 1:58 PM MENTAL HEALTH TECHNICIAN EPIC results best viewed via link to PDF [facility] [place] [address] Note to Patients: This report may contain [...] Gender: Josefa : 1990 (Age: 33) Address: [address] [place] [address] [place] [id number] [facility] #: [id number] Service: UNKNOWN Location: Patient Type: [facility] SPECIMEN Taken: 04/28/2024 Received: 04/28/2024 Accessioned: 04/28/2024 [...] this test have been verified by the [facility] Molecular Infectious Disease laboratory. Correlate with reported cytology results, as applicable. Interpretive data last revised 22 jhosie/05/05/2024 13:58 MOHIT Naylor(ASCP) Report Electronically Reviewed and Signed Out By MOHIT Naylor(ASCP) 05/05/2024 13:58:57 Cervicovaginal Cytology (Pap Test) Disclaimer: The Pap test is a screening test used to detect cervical cancer and its precursors; it is not a diagnostic procedure. False negative and false positive results do occur. Pap test results should be interpreted in the context of pertinent clinical information and biopsy results as indicated. [facility] Clinical Laboratory Improvement Amendments (CLIA) mandate that cytologic and histologic results be correlated for laboratory quality liaison & improvement standards. FOR ALL HIGH-GRADE CASES [...] determined by the Surgical Pathology Department at [facility] as part of an ongoing quality liaison program and in compliance with federally mandated [...] determined by the Surgical Pathology Department of [facility]. It has not been cleared or approved by the [place]. S. Food and Drug Administration. Britta Fofana MD LAB CYTOLOGY ORDERABLES F inal Result * High Risk HPV DNA Detection with Genotyping (Molecular component) (04/28/2024 1:13 PM MENTAL HEALTH TECHNICIAN) HPV HR [address] [facility] HPV HR 18 Not Detected Not Detected [facility] HPV HR Non 16/18 Not Detected Not Detected [facility] Comment: Interpretive Data Nucleic acid amplification for [...] this test have been verified by the [facility] Molecular Infectious Disease laboratory. Correlate with separately reported cytology results, as applicable. Interpretive data last revised 22 Endocervical 04/28/2024 1:13 PM MENTAL HEALTH TECHNICIAN 04/29/2024 9:10 AM MENTAL HEALTH TECHNICIAN Narrative [facility] - 05/01/2024 6:55 PM MENTAL HEALTH TECHNICIAN Clinical history and diagnosis->screening Testing type->Screening Last menstrual period (date if known)->unk Britta Fofana MD LAB BODY FLUIDS AND STOOL S ORDERABLES Final Result [facility] Department [place] [address] [facility] * Targeted Opioid Screen, Ur (04/28/2024 1:13 PM MENTAL HEALTH TECHNICIAN) Pathologist [facility] Pain mgt 6-Acetylmorphine, Ur Not Detected CutOff 10 ng/mL Pain mgt Buprenorphine, Ur Detected CutOff 5 ng/mL [facility] Pain mgt Buprenorphine metabolite (Norbuprenorphine), Ur Detected CutOff 5 ng/mL [facility] Pain mgt Codeine, Ur Not Detected CutOff 25 ng/mL [facility] Pain mgt Hydrocodone, Ur Not Detected CutOff 25 ng/mL [facility] Pain mgt Hydromorphone, Ur Not Detected CutOff 25 ng/mL [facility] Pain mgt Methadone, Ur Not Detected CutOff 25 ng/mL [facility] Pain mgt Methadone Metabolite (EDDP), Ur Not Detected CutOff 25 ng/mL [facility] Pain mgt Morphine, Ur Not Detected CutOff 25 ng/mL [facility] Pain mgt Oxycodone, Ur Not Detected CutOff 25 ng/mL [facility] Pain mgt Oxymorphone, Ur Not Detected CutOff 25 ng/mL [facility] Pain mgt Tapentadol, Ur Not Detected CutOff 25 ng/mL [facility] Pain mgt Tramadol, Ur Not Detected CutOff 25 ng/mL [facility] Pain mgt Tramadol metabolite (O-desmethyltramado l), Ur Not Detected CutOff 25 ng/mL [facility] Comment: Interpretive Data This test only [...] developed and its performance characteristics determined by [facility]. It has not been cleared or approved by the U.S. Food and Drug Administration. Current interpretive data was last revised 18. Pain mgt Naloxone, ur Not Detected cutoff 20 ng/ml [facility] Urine 04/28/2024 1:13 PM MENTAL HEALTH TECHNICIAN 04/28/2024 5:57 PM MENTAL HEALTH TECHNICIAN us Britta Fofana MD LAB URINE ORDERABLES Estee kahn Result [facility] Department [place] [address] * (ABNORMAL) Drugs of Abuse Screen, Urine with Reflex Confirmation (04/28/2024 1:13 PM MENTAL HEALTH TECHNICIAN) [facility] Amphetamine, ur Not Detected CutOff 500ng/mL Comment: Interpretive Data - Amphetamines: Samples containing greater than 500 ng/mL d-methamphetamine or other cross-reacting amphetamine compounds are reported as positive. Amphetamine immunoassays are subject to significant false positive rates due to cross-reactivity of non-amphetamine drugs. Confirmatory testing required for definitive results. Current Interpretive Data was last reviewed 2022. Barbiturates, ur Not Detected CutOff 200ng/mL [facility] Comment: Interpretive Data - Barbiturates: Samples containing greater than 200 ng/mL secobarbital or other cross-reacting barbiturate compounds are reported as positive. False positive and false negative results are possible. Confirmatory testing required for definitive results. Current Interpretive Data was last reviewed 2022. Benzodiazepines, ur Not Detected CutOff 100ng/mL [facility] Comment: Interpretive Data - Benzodiazepines: Samples containing greater than 100 ng/mL nordiazepam or other cross-reacting compounds are reported as positive. False positive and false negative results are possible. Confirmatory testing required for definitive results. Current Interpretive Data was last reviewed 2022. Cannabinoids, ur Screen Positive, presumptive (A) CutOff 50 ng/mL [facility] Comment: Interpretive Data - Cannabinoids: Samples containing greater than 50 ng/mL delta-9 THC -COOH or other cross- reacting compounds are reported as positive. False positive and false negative results are possible. Confirmatory testing required for definitive results. Current Interpretive Data was last reviewed 2022. Cocaine, ur Not Detected CutOff 150ng/mL [facility] Comment: Interpretive Data - Cocaine: Samples containing greater than 150 ng/mL benzoylecgonine or other cross- reacting compounds are reported as positive. False positive and false negative results are possible. Confirmatory testing required for definitive results. Current Interpretive Data was last reviewed 2022. Fentanyl, Ur Not Detected CutOff 5 ng/mL [facility] Comment: Interpretive Data - Fentanyl: Samples containing greater than 5 ng/mL norfentanyl, fentanyl, or other cross-reacting fentanyl compounds are reported as positive. False positive and false negative results are possible. Confirmatory testing required for definitive results. Current Interpretive Data was last reviewed 2023. Methadone, ur Not Detected CutOff 300ng/mL [facility] Comment: Interpretive Data - Methadone: Samples containing greater than 300 ng/mL d,l-methadone or other cross-reacting compounds are reported as positive. False positive and false negative results are possible. Confirmatory testing required for definitive results. Current Interpretive Data was last reviewed 2022. Opiates, ur Not Detected CutOff 300ng/mL [facility] Comment: Interpretive Data - Opiates: Samples containing greater than 300 ng/mL morphine or other cross-reacting compounds are reported as positive. False positive and false negative results are possible. Confirmatory testing required for definitive results. Current Interpretive Data was last reviewed 2022. Oxycodone, ur Not Detected CutOff 100ng/mL [facility] Comment: Interpretive Data - Oxycodone: Samples containing greater than 100 ng/mL oxycodone or other cross-reacting compounds are reported as positive. False positive and false negative results are possible. Confirmatory testing required for definitive results. Current Interpretive Data was last reviewed 2022. Phencyclidine, ur Not Detected CutOff 25 ng/mL [facility] Comment: Interpretive Data - Phencyclidine: Samples containing greater than 25 ng/mL phencyclidine or other cross-reacting compounds are reported as positive. False positive and false negative results are possible. Confirmatory testing required for definitive results. Current Interpretive Data was last reviewed 2022. Urine Creatinine 178 mg/dL [facility] Comment: Interpretive Data Urine Creatinine: < 10 mg/dL is extremely dilute = or > 10 but < 20 mg/dL is dilute = or > 20 mg/dL is normal Current Interpretive Data was last revised on 2017. Urine 04/28/2024 1:13 PM MENTAL HEALTH TECHNICIAN 04/28/2024 5:57 PM MENTAL HEALTH TECHNICIAN Narrative [facility] - 04/28/2024 6:44 PM MENTAL HEALTH TECHNICIAN Drug of Abuse screening is performed by immunoassay for medical purposes only. This is not to be used for Pain Management purposes. If Detected, confirmation testing will be performed for Amphetamines, Cocaine, Fentanyl, Methadone, Opiates, Oxycodone or Phencyclidine. Britta Fofana MD LAB URINE ORDERABLES Estee kahn Result [facility] Department [place] [address] * HIV 1/2 Antibody plus p24 Antigen Blood (04/28/2024 1:08 PM MENTAL HEALTH TECHNICIAN) Pathologist [facility] HIV 1/2 ab + p24 ag Nonreactive Nonreactive Comment:Nonreactive for HIV- 1 antigen and HIV-1/HIV-2 antibodies. No laboratory evidence of HIV infection. If acute HIV infection is suspected, consider testing for HIV-1 RNA. Current interpretive data was last revised on 22. Blood 04/28/2024 1:08 PM MENTAL HEALTH TECHNICIAN 04/28/2024 3:52 PM MENTAL HEALTH TECHNICIAN Britta Fofana MD LAB MICROBIOLOGY - GENERA L ORDERABLES Final Result Performing Organization Address [facility] [place] [address] * Hepatitis C antibody Blood (04/28/2024 1:08 PM MENTAL HEALTH TECHNICIAN) [facility] Hep C Ab Nonreactive Nonreactive Comment:Antibodies to HCV no t detected. Does NOT exclude the possibility of recent exposure to HCV. Current interpretive data was last revised on 22 Blood 04/28/2024 1:08 PM MENTAL HEALTH TECHNICIAN 04/28/2024 3:52 PM MENTAL HEALTH TECHNICIAN Britta Fofana MD LAB MICROBIOLOGY - GENERA L ORDERABLES Final Result Performing Organization Address [facility] Co de Phone Number [facility] [employer] [place] [address] * Hepatitis B Surface Antigen Blood (04/28/2024 1:08 PM MENTAL HEALTH TECHNICIAN) Pathologist [facility] HepBsAg Nonreactive Nonreactive Blood 04/28/2024 1:08 PM MENTAL HEALTH TECHNICIAN 04/28/2024 3:52 PM MENTAL HEALTH TECHNICIAN Britta Fofana MD LAB MICROBIOLOGY - GENERA L ORDERABLES Final Result Performing Organization Address [facility] de Phone Number [facility] Department [place] [address] from Last 3 Months Insurance [facility] Advance Directives For more information, please contact: [phone] * Full Code (Latest Code Status on File) Date Activated Date Inactivated Comments 02/04/2024 10:52 PM 02/06/2024 6:51 PM * Full Code Date Activated Date Inactivated Comments 08/06/2023 4:31 PM 02/04/2024 10:52 PM * Full Code Date Activated Date Inactivated Comments 07/10/2023 2:21 AM 07/12/2023 7:18 PM Care Teams Varnish Finisher Relationship Specialty Start Date End Date No, Physician PCP - General 07/09/23
--- NOTE | 2024-06-23 06:26 | ED_ITS ---
HPI - General Adult General Chief complaint: Seizure Stated complaint: SEIZURE Time Seen by Provider: 06/23/24 03:22 History of Present Illness HPI narrative: This is a 33-year-old female with seizure disorder presenting after a seizure home. She was having discussion with her mother when she started staring off in space. She then fell forward striking her head. She has a small laceration over her left or rim. EMS was called and she was brought to the hospital. Patient is at her baseline mental status with a normal neuro exam. Patient takes lacosamide is not missed any doses. Last seizure was 2 weeks ago. Related Data Allergies Allergy/AdvReac Type Severity Reaction Status Date / Time acetaminophen (From Vicodin) Allergy Intermediate Hives Verified 06/23/24 03:27 hydrocodone (From Vicodin) Allergy Intermediate Hives Verified 06/23/24 03:27 Exam 2 Narrative: APPEARANCE: No apparent distress. Head: 1 cm laceration over the left orbital rim EYES: EOMI, NOSE: Atraumatic NECK: Trachea midline RESPIRATORY: No increased rate of breathing CTAB CARDIOVASCULAR: RRR, ABDOMINAL: Non-distended MUSCULOSKELETAl: No obvious deformities NEURO: Alert. Cranial nerves 2-12 grossly intact. Sensation light touch, motor function cerebellar function intact for 4 extremities. Gait exam was normal. SKIN:: Warm, dry. Normal color PSYCHIATRIC: Normal affect Course Vital Signs Vital signs: Vital Signs Blood Pressure 117/74 06/23/24 03:06 Temperature 98.3 F 06/23/24 05:11 Pulse Rate 58 L 06/23/24 05:11 Respiratory Rate 17 06/23/24 05:11 Blood Pressure 138/94 H 06/23/24 05:11 Pulse Oximetry 99 06/23/24 05:11 Oxygen Delivery Room Air 06/23/24 03:20 Procedures Laceration Laceration 1: Date: 06/23/24 Site: face Side (If applicable): left Size (cm): 1 Description: linear and stellate Depth: simple, single layer Local Anesthetic: lidocaine 1% Amount of anesthesia used (mL): 2 Pre-repair: wound explored, irrigated and irrigated extensively ====== Skin Level ====== Skin layer closed with: prolene Size (cm): 5-0 Number of sutures: 2 Technique: simple, interrupted ====== Subcutaneous Layer ====== ====== Muscle Layer ====== ====== Tendon Layer ====== Medical Decision Making MDM Narrative Medical decision making narrative: -Course: 33-year-old female with epilepsy presenting after seizure. CT head and C-spine negative for acute traumatic injury. Facial laceration repaired. Laboratory studies within normal limits. Patient returned to her baseline mental status as a normal neuro exam. I reviewed her last neurology visit on her my chart. It is unclear if she has pseudoseizures or epileptic seizures. She has not had an MRI/EEG yet. We do not have Neurology on-call. Patient will be discharged to follow-up with her neurologist for further management. She can return if her condition is to worsen. -DDX includes but is not limited to: Pseudo seizure, epileptic seizure TBI -Co-morbidities complicating care: Seizure disorder, psychiatric illness, borderline personality disorder Vital Signs Vital Signs: Vital Signs Blood Pressure 117/74 06/23/24 03:06 Temperature 98.3 F 06/23/24 05:11 Pulse Rate 58 L 06/23/24 05:11 Respiratory Rate 17 06/23/24 05:11 Blood Pressure 138/94 H 06/23/24 05:11 Pulse Oximetry 99 06/23/24 05:11 Oxygen Delivery Room Air 06/23/24 03:20 Lab Data 06/23/24 05:19 06/23/24 05:19 Labs: Lab Results 06/23/24 06/23/24 Range/Units 04:19 05:19 WBC 7.4 (4.5-10.0) K/mm3 RBC 4.06 L (4.2-5.4) M/mm3 Hgb 12.0 (12.0-15.0) g/dL Hct 36.9 L (37.0-47.0) % MCV 90.9 (80-100) fl MCH 29.6 (26-34) pg MCHC 32.5 (32-36) g/dl RDW 12.0 (11.5-14.5) % Plt Count 281 (150-375) k/mm3 MPV 9.7 (7.4-10.4) fl Immature Gran % (Auto) 0.3 (0-0.5) % Neut % (Auto) 63.7 (45.5-73.1) % Lymph % (Auto) 25.3 (18.3-44.2) % [place] % (Auto) 6.3 (2.6-8.5) % Eos % (Auto) 3.9 (0-4.4) % Baso % (Auto) 0.5 (0.2-1.2) % Lymph # (Auto) 1.86 (0.9-3.2) K/mm3 [place] # (Auto) 0.5 (0.1-0.6) K/mm3 Eos # (Auto) 0.3 (0-0.3) K/mm3 Baso # (Auto) 0.0 (0.0-0.1) K/mm3 Abs Immat Gran (auto) 0.02 (0.00-0.031) K/mm3 Absolute Neuts (auto) 4.7 (1.3-6.7) K/mm3 Absolute Nucleated RBC 0.000 (0.0-0.012) K/mm3 Nucleated RBC % 0.0 (0.0-0.2) % Sodium 138 (137-145) mmol/L Potassium 3.6 (3.4-5.0) mmol/L Chloride 106 (98-107) mmol/L Carbon Dioxide 28 (22-30) mmol/L Anion Gap 4 (4-12) mmol/L BUN 14 (7-17) mg/dL Creatinine 0.53 L (0.7-1.0) mg/dL Estim Creat Clear Calc 92 ml/min Estimated GFR > 60 (59 - ) Glucose 82 (65-110) mg/dL Calcium 8.1 L (8.4-10.2) mg/dL Total Bilirubin 0.3 (0.2-1.3) mg/dL AST 19 (14-36) U/L ALT 11 (6-35) U/L Alkaline Phosphatase 70 (38-126) U/L Total Protein 6.0 L (6.3-8.2) g/dL Albumin 3.4 L (3.5-5.1) g/dL Influenza A (RT-PCR) Negative (Negative) Influenza B (RT-PCR) Negative (Negative) RSV (RT-PCR) Negative (Negative) SARS-CoV-2 RNA (RT-PCR) Negative (Negative) Discharge Plan Discharge Clinical Impression: Seizure Patient Disposition: Home, Self-Care Condition: Stable Instructions: Antibiotic Form, Care For Your Stitches (ED), Epilepsy (DC) Additional Instructions: Please follow-up with your neurologist for further management. Please continue taking her antiepileptic medications. Your sutures need to be removed in 5-7 days by a medical professional. Return to ED if you develop seizures, any new or worsening symptoms, or signs of infection under sutures. Patient Language: Maltese Follow-up/Referrals: PHYSICIAN,BACKSHOE PERSON [Primary Care Provider] -
== END 2024-06-23 06:43 | disposition home or self-care (01) ==
PROVIDERS: Emergency Provider Emergency Medicine
DX: G40.909 Epilepsy, unspecified, not intractable, without status epilepticus (principal); S01.112A Laceration without foreign body of left eyelid and periocular area, initial encounter; Z79.899 Other long term (current) drug therapy; R94.31 Abnormal electrocardiogram [ECG] [EKG]; W22.8XXA Striking against or struck by other objects, initial encounter
CPT/HCPCS: 12011; 36415; 70450; 72125; 80053; 85025; 87637; 93005; 96360; 99284; J2003; J7030; L0140